=== PATIENT | male | born 1945 | race Two or more races ===

== ENCOUNTER 2019-11-23 21:54 | Inpatient (IN) | payer MEDICARE, OTHER ==
[~2019-11-23] VITALS: Ht 175.3 cm; Wt 89.4 kg
[2019-11-23 22:30] VITALS: BP 135/60
[2019-11-23 22:36] LABS: BASOPHILS % (AUTO) 0.7 % (0.0-2.0); HEMATOCRIT 45.8 % (42.0-52.0); HEMOGLOBIN 13.9 G/DL (14.2-18.0); LYMPHOCYTES % (AUTO) 11.9 % (20.0-45.0); MEAN CORPUSCULAR VOLUME 98 FL (80-99); NEUTROPHILS % (AUTO) 81.3 % (45.0-75.0); PLATELET COUNT 190 K/UL (150-450); RED BLOOD COUNT 4.67 M/UL (4.70-6.10); WHITE BLOOD COUNT 8.3 K/UL (4.8-10.8)
--- NOTE | 2019-11-23 22:47 | Diagnostic Imaging Report ---
EXAM: CT Head Without Intravenous Contrast CLINICAL HISTORY: DIZZY TECHNIQUE: Axial computed tomography images of the head/brain without intravenous contrast. CTDI is 53.4 mGy and DLP is 1072.2 mGy-cm. One or more of the following dose reduction techniques were used: automated exposure control, adjustment of the mA and/or kV according to patient size, use of iterative reconstruction technique. COMPARISON: No relevant prior studies available. FINDINGS: Brain: No hemorrhage. No edema. Involutional changes with small vessel disease Ventricles: No ventriculomegaly. Bones/joints: No acute fracture. Soft tissues: Unremarkable. Sinuses: No acute sinusitis. Sinus retention cyst/polyps. Mastoid air cells: No mastoid effusion. Right cataract surgery. IMPRESSION: No acute intracranial process.
[2019-11-23 23:04] LABS: ALANINE AMINOTRANSFERASE 117 U/L (12-78); ALBUMIN 3.9 G/DL (3.4-5.0); ALBUMIN/GLOBULIN RATIO 1.2 (1.0-2.7); ALKALINE PHOSPHATASE 76 U/L (46-116); ANION GAP 8 mmol/L (5-15); ASPARTATE AMINO TRANSFERASE 68 U/L (15-37); BILIRUBIN,TOTAL 0.4 MG/DL (0.2-1.0); BLOOD UREA NITROGEN 19 mg/dL (7-18); CALCIUM 8.8 MG/DL (8.5-10.1); CARBON DIOXIDE 29 MMOL/L (21-32); CHLORIDE 102 MMOL/L (98-107); CREATININE 1.4 MG/DL (0.55-1.30); SODIUM 138 MMOL/L (136-145)
[2019-11-23] MEDS ORDERED: Calcium Gluconate 1gm/10ml vial IVP ONE (23:30)
[2019-11-23] MEDS ORDERED: Insulin Human Regular 100units/ml 3ml IV ONE (23:30)
[2019-11-23] MEDS ORDERED: Mylanta II UD 30ml ORAL ONE (23:45)
[2019-11-23] MEDS ORDERED: Dicyclomine HCl 10mg/5ml oral soln ORAL ONE (23:45)
[2019-11-23] MEDS ORDERED: Lidocaine 2% Visc 15ml soln ORAL ONE (23:45)
[2019-11-24 00:05] VITALS: BP 139/66
--- NOTE | 2019-11-24 00:08 | Emergency Room Report ---
History of Present Illness General Chief Complaint: Abdominal Pain Source: Patient Present Illness HPI 74-year-old male presents for evaluation of dizziness. Brought in by EMS from home. States he has been feeling dizzy x1 day. Also states he has been having diarrhea and some abdominal pain. Denies any abdominal pain at this time. per nursing patient was covered in stool. Patient denies fevers or chills. Denies chest pain. No other aggravating relieving factors. 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: No Patient History Past Medical History: DM, HTN Past Surgical History: none Pertinent Family History: none Social History: Denies: smoking, alcohol use, drug use Reviewed Nursing Documentation: PMH: Agreed; PSxH: Agreed Nursing Documentation-PMH Hx Cardiac Problems: Yes - hld; 1degree block Hx Hypertension: Yes Hx Diabetes: Yes Review of Systems All Other Systems: negative except mentioned in HPI Physical Exam Vital Signs Date Time Temp Pulse Resp B/P (MAP) Pulse Ox O2 Delivery O2 Flow Rate FiO2 11/23/19 21:39 75 18 163/88 (113) 98 Room Air Sp02 EP Interpretation: reviewed, normal General Appearance: no apparent distress, alert, GCS 15, non-toxic Head: normocephalic, atraumatic Eyes: bilateral eye normal inspection, bilateral eye PERRL ENT: hearing grossly normal, normal pharynx, no angioedema, normal voice Neck: full range of motion, supple/symm/no masses Respiratory: chest non-tender, lungs clear, normal breath sounds, speaking full sentences Cardiovascular #1: regular rate, rhythm, no edema Cardiovascular #2: 2+ carotid (R), 2+ carotid (L), 2+ radial (R), 2+ radial (L) , 2+ dorsalis pedis (R), 2+ dorsalis pedis (L) Gastrointestinal: normal bowel sounds, non tender, soft, non-distended, no guarding, no rebound Rectal: deferred Genitourinary: normal inspection, no CVA tenderness Musculoskeletal: back normal, normal range of motion, gait/station normal, non- tender Neurologic: alert, motor strength/tone normal, oriented x3, sensory intact, responsive, speech normal Psychiatric: judgement/insight normal, memory normal, mood/affect normal, no suicidal/homicidal ideation Reflexes: 3+ bicep (R), 3+ bicep (L), 3+ tricep (R), 3+ tricep (L), 3+ knee (R) , 3+ knee (L) Lymphatic: no adenopathy Procedures Critical Care Time Critical Care Time i. I feel this is a highly complex case requiring extensive working including EKG/Rhythm strip, Xray/CT/US, Blood/urine lab work, repeat exams while in ED, and administration of strong opiates/narcotics for pain control, admission to hospital or close patient follow up. Total time: 30 min bedside evaluation and treatment excludes procedures (EKG). Reason for critical care: hyperkalemia, dizziness Possible complications: hypotension, hypertension, DE, shock, arrhythmias, metabolic acidosis, end organ damage, respiratory failure. Interventions: labs, ekg, CXR, ivfs, calcium/insulin/D50, CT head Course: Presenting with dizziness. Also complaining of diarrhea. EKG shows fascicular block. No acute ischemic changes. CT head negative. Mild renal insufficiency. Potassium elevated. given insulin/D50/calcium. Given IV fluids. Consultations: nursing staff, EMS, family Performed by: Dr Christensen Tolerated well condition = serious j. because of unstable vital signs this patient had a condition that could potentially threaten life or limb. I feel this is a critical patient who required my full attention while patient was considered critical. Total Critical Care Time excluding procedures was greater than 35 minutes Medical Decision Making Diagnostic Impression: Primary Impression: Dizziness Additional Impressions: Renal insufficiency Hyperkalemia Diarrhea Qualified Codes: R19.7 - Diarrhea, unspecified ER Course Hospital Course 74 yo M presents with dizziness, diarrhea Differential diagnoses include: DE/unstable angina, V. tach, bradycardia, hyperkalemia, fluid overload Clinical course Patient placed on stretcher. on campus monitor. After initial history and physical I ordered labs, EKG, CXR, IVFs, CT Head labs reviewed- potassium 6.0. BUN/Cr elevated. no leukocytotsis, trop negative , BNP ok, Hemoglobin/hematocrit normal. EKG - bifascular block, no acute ischemci changes interpreted by me CXR - no acute process CT head no acute process Given insulin/D50 and calcium. Case discussed with Dr. Esquivel and he agreed to accept the patient to his service for further care and support I. I feel this is a highly complex case requiring extensive working including EKG/Rhythm strip, Xray/CT/US, Blood/urine lab work, repeat exams while in ED, and administration of strong opiates/narcotics for pain control, admission to hospital or close patient follow up. Diagnosis - hyperkalemia,renal insufficency, diarrhea, dizziness admitted to telemetry in serious condition Labs Test 11/23/19 22:10 White Blood Count 8.3 K/UL (4.8-10.8) Red Blood Count 4.67 M/UL (4.70-6.10) Hemoglobin 13.9 G/DL (14.2-18.0) Hematocrit 45.8 % (42.0-52.0) Mean Corpuscular Volume 98 FL (80-99) Mean Corpuscular Hemoglobin 29.8 PG (27.0-31.0) Mean Corpuscular Hemoglobin Concent 30.4 G/DL (32.0-36.0) Red Cell Distribution Width 14.0 % (11.6-14.8) Platelet Count 190 K/UL (150-450) Mean Platelet Volume 9.2 FL (6.5-10.1) Neutrophils (%) (Auto) 81.3 % (45.0-75.0) Lymphocytes (%) (Auto) 11.9 % (20.0-45.0) Monocytes (%) (Auto) 5.0 % (1.0-10.0) Eosinophils (%) (Auto) 1.0 % (0.0-3.0) Basophils (%) (Auto) 0.7 % (0.0-2.0) Sodium Level 138 MMOL/L (136-145) Potassium Level 6.0 MMOL/L (3.5-5.1) Chloride Level 102 MMOL/L (98-107) Carbon Dioxide Level 29 MMOL/L (21-32) Anion Gap 8 mmol/L (5-15) Blood Urea Nitrogen 19 mg/dL (7-18) Creatinine 1.4 MG/DL (0.55-1.30) Estimat Glomerular Filtration Rate 49.5 mL/min (>60) Glucose Level 310 MG/DL (74-106) Calcium Level 8.8 MG/DL (8.5-10.1) Total Bilirubin 0.4 MG/DL (0.2-1.0) Aspartate Amino Transf (AST/SGOT) 68 U/L (15-37) Alanine Aminotransferase (ALT/SGPT) 117 U/L (12-78) Alkaline Phosphatase 76 U/L (46-116) Troponin I 0.012 ng/mL (0.000-0.056) Pro-B-Type Natriuretic Peptide 53 pg/mL (0-125) Total Protein 7.1 G/DL (6.4-8.2) Albumin 3.9 G/DL (3.4-5.0) Globulin 3.2 g/dL Albumin/Globulin Ratio 1.2 (1.0-2.7) Lipase 139 U/L (73-393) EKG Diagnostic Results Rate: normal Rhythm: NSR ST Segments: other - bifasciular block ASA given to the pt in ED: No Rhythm Strip Diag. Results EP Interpretation: yes Rhythm: NSR, no PVC's, no ectopy Chest X-Ray Diagnostic Results Chest X-Ray Diagnostic Results : Chest X-Ray Ordered: Yes # of Views/Limited/Complete: 1 View Indication: Other EP Interpretation: Yes Interpretation: no consolidation, no effusion, no pneumothorax, no acute cardiopulmonary disease Impression: No acute disease Electronically Signed by: Electronically signed by Ilir Christensen MD CT/MRI/US Diagnostic Results CT/MRI/US Diagnostic Results : Imaging Test Ordered: CT Head Impression EXAM: CT Head Without Intravenous Contrast CLINICAL HISTORY: DIZZY TECHNIQUE: Axial computed tomography images of the head/brain without intravenous contrast. CTDI is 53.4 mGy and DLP is 1072.2 mGy-cm. One or more of the following dose reduction techniques were used: automated exposure control, adjustment of the mA and/or kV according to patient size, use of iterative reconstruction technique. COMPARISON: No relevant prior studies available. FINDINGS: Brain: No hemorrhage. No edema. Involutional changes with small vessel disease Ventricles: No ventriculomegaly. Bones/joints: No acute fracture. Soft tissues: Unremarkable. Sinuses: No acute sinusitis. Sinus retention cyst/polyps. Mastoid air cells: No mastoid effusion. Right cataract surgery. IMPRESSION: No acute intracranial process. Last Vital Signs Date Time Temp Pulse Resp B/P (MAP) Pulse Ox O2 Delivery O2 Flow Rate FiO2 11/23/19 22:30 76 18 135/60 98 Room Air Status: improved Disposition: ADMITTED INPATIENT Condition: Serious Referrals: NON PHYSICIAN (PCP) Ilir Christensen MD Nov 24, 2019 00:08
[2019-11-24] MEDS ORDERED: Morphine Sulfate 2mg/ml Inj(IV/IM USE ONLY) IVP ONE (00:15)
[2019-11-24 04:00] VITALS: BP 122/53
[2019-11-24] MEDS: NovoLOG Insulin Flexpen SUBQ SCH ×4 (06:10→21:12)
[2019-11-24 06:44] LABS: BASOPHILS % (AUTO) 1.1 % (0.0-2.0); EOSINOPHILS % (AUTO) 0.6 % (0.0-3.0); HEMATOCRIT 42.7 % (42.0-52.0); LYMPHOCYTES % (AUTO) 22.9 % (20.0-45.0); MEAN CORPUSCULAR VOLUME 98 FL (80-99); MONOCYTES % (AUTO) 6.8 % (1.0-10.0); NEUTROPHILS % (AUTO) 68.6 % (45.0-75.0); PLATELET COUNT 192 K/UL (150-450); RED BLOOD COUNT 4.35 M/UL (4.70-6.10); WHITE BLOOD COUNT 8.1 K/UL (4.8-10.8)
[2019-11-24 07:51] LABS: ALANINE AMINOTRANSFERASE 102 U/L (12-78); ALBUMIN 3.6 G/DL (3.4-5.0); ALBUMIN/GLOBULIN RATIO 1.2 (1.0-2.7); ALKALINE PHOSPHATASE 64 U/L (46-116); ANION GAP 8 mmol/L (5-15); ASPARTATE AMINO TRANSFERASE 67 U/L (15-37); BILIRUBIN,TOTAL 0.5 MG/DL (0.2-1.0); BLOOD UREA NITROGEN 18 mg/dL (7-18); CALCIUM 8.4 MG/DL (8.5-10.1); CARBON DIOXIDE 29 MMOL/L (21-32); CHLORIDE 103 MMOL/L (98-107); CREATININE 0.9 MG/DL (0.55-1.30); POTASSIUM 4.1 MMOL/L (3.5-5.1); SODIUM 140 MMOL/L (136-145)
[2019-11-24 08:00] VITALS: BP 123/62
[2019-11-24] MEDS: Levemir Flexpen SUBQ SCH (08:56)
--- NOTE | 2019-11-24 10:16 | Diagnostic Imaging Report ---
Procedure: XRAY Chest 1v Reason for study: Cough. Comparison films: None. FINDINGS: A single one view chest is obtained. Vascularity is normal. Mild interstitial prominence perhaps geriatric changes. No acute alveolar process. There is mild cardiomegaly. Aorta is slightly tortuous. CP angles are sharp. The bony thorax appear unremarkable. IMPRESSION: Interstitial prominence perhaps geriatric changes. No acute alveolar process.
[2019-11-24 12:00] VITALS: BP 130/70
[2019-11-24] MEDS ORDERED: Omnipaque-300 100ml vial INJ PRN (12:15)
--- NOTE | 2019-11-24 12:35 | Consultation ---
Consult Note Consult Note I am asked to evaluate the patient at the request of Dr. Esquivel for renal failure and hyperkalemia. Patient came into emergency room last evening and subsequently admitted for further management. Emergency room note: Chief Complaint: Abdominal Pain 74-year-old male presents for evaluation of dizziness. Brought in by EMS from home. States he has been feeling dizzy x1 day. Also states he has been having diarrhea and some abdominal pain. Denies any abdominal pain at this time. per nursing patient was covered in stool. Patient denies fevers or chills. Denies chest pain. No other aggravating relieving factors. Denies any other associated symptoms No Known Allergies (Unverified , 11/23/19) COVID-19 Screening Contact w/high risk pt: No Recent Travel to affected area: No Experienced COVID-19 symptoms?: No COVID-19 Testing performed TRANSITION OF CARE SPECIALIST: No Past Medical History: DM, HTN Hx Cardiac Problems: Yes - hld; 1degree block Hx Hypertension: Yes Hx Diabetes: Yes Patient examined Data reviewed Assessment/Plan Elevated potassium of 6 and creatinine of 1.4 now corrected Diabetes mellitus Dizziness upon admission Diarrhea Check orthostatics Urine for analysis Monitor renal parameters and electrolytes Per orders Titi Luna MD Nov 24, 2019 12:35
[2019-11-24 16:00] VITALS: BP 133/62
--- NOTE | 2019-11-24 16:30 | Consultation ---
DATE OF CONSULTATION: 11/24/2019 CHIEF COMPLAINT: Abdominal pain. HISTORY OF PRESENT ILLNESS: This is a 74-year-old patient came from the [facility] mainly for complaint of dizziness, diarrhea, and abdominal pain. This morning when I talked to him, he stated his abdominal pain is better. He has not had diarrhea since this morning but he states his abdomen is distended, tender, and he is concerned. PAST MEDICAL HISTORY: 1. History of diabetes. 2. Hypertension. 3. First-degree AV block. PAST SURGICAL HISTORY: None. ALLERGIES: No known drug allergies. MEDICATIONS: Please see medication reconciliation list. SOCIAL HISTORY: The patient denies any tobacco, alcohol, or drug abuse. Currently lives in a [facility]. FAMILY HISTORY: Noncontributory. PHYSICAL EXAMINATION: VITAL SIGNS: The patient is no acute distress. VITAL SIGNS: Temperature 98.1, pulse 61, respirations 18, blood pressure is 123/62. HEENT: Normocephalic and atraumatic. Sclerae anicteric. NECK: Supple. No evidence of obvious lymphadenopathy. CARDIOVASCULAR: Regular rate and rhythm. Plus S1 and S2. LUNGS: Clear to auscultation bilaterally. ABDOMEN: Positive bowel sounds. Soft. Mildly distended. Mildly tympanic to percussion. No rebound. No guarding. No peritoneal sign. EXTREMITIES: No cyanosis. No clubbing. No edema. LABORATORY DATA: White count is 8, hemoglobin 13, hematocrit 42, platelet count 192. Chem-7, creatinine is 0.9, glucose is 136, AST of 67, ALT of 102. ASSESSMENT/PLAN: The patient is a 74-year-old male with diabetes, hypertension, first-degree AV block came to the hospital with complaint of abdominal pain and diarrhea. Diarrhea is improving, but the abdominal pain is still there. Given age of 74 and abdominal distention, we are going to order CT to reevaluate for cause of abdominal pain. There is no evidence of any alarming sign and symptoms at this time. There is no anemia. No significant weight loss. The patient also has mild transaminitis might be due to fatty liver. We will repeat the labs for tomorrow. I want to thank, Dr. Esquivel, for this kind referral. Sabino Rufus Magdaleno DR: Hollie JOB#: [id number] CC: Morena Esquivel M.D.; Fax#: [phone]
[2019-11-24 17:41] LABS: APPEARANCE,URINE CLEAR; BILIRUBIN, URINE NEGATIVE (NEGATIVE); COLOR,URINE PALE YELLOW; GLUCOSE, URINE (UA) NEGATIVE (NEGATIVE); KETONES,URINE NEGATIVE (NEGATIVE); LEUKOCYTE ESTERASE ,URINE NEGATIVE (NEGATIVE); NITRITE,URINE NEGATIVE (NEGATIVE); PH,URINE 6.5 (4.5-8.0); PROTEIN,URINE NEGATIVE (NEGATIVE); UROBILINOGEN,URINE NORMAL MG/DL (0.0-1.0)
--- NOTE | 2019-11-24 18:00 | Consultation ---
DATE OF CONSULTATION: 11/24/2019 ENDOCRINOLOGY CONSULTATION CONSULTING PHYSICIAN: Oskar Dominique MD REFERRING PHYSICIAN: Morena Esquivel MD REASON FOR CONSULTATION: Diabetes, out of control, glucose of 300. HISTORY OF PRESENT ILLNESS: The patient is a 74-year-old male who was brought by paramedics from home. He has been feeling dizzy x1 day with diarrhea and abdominal pain. The patient was covered in stool. No fever or chills. No other associated symptoms. Poor historian. PAST MEDICAL HISTORY: 1. Diabetes. 2. Hypertension. PAST SURGICAL HISTORY: None. FAMILY HISTORY: Noncontributory. SOCIAL HISTORY: No smoking, alcohol, or drug use. REVIEW OF SYSTEMS: As per HPI. LABORATORY DATA: Sodium 138, potassium of 6, chloride 102, bicarb 29, BUN 19, creatinine 1.4, glucose of 310. WBC 8, hemoglobin 13, hematocrit 42, platelets of 192. PHYSICAL EXAMINATION: VITAL SIGNS: Blood pressure 122/53, pulse 60, temperature 96.7, respiratory rate of 16. HEENT: Pupils are equal and reactive to light. Sclerae anicteric. NECK: No JVD. HEART: Regular. LUNGS: Clear. ABDOMEN: Positive bowel sounds. EXTREMITIES: Trace edema. DIAGNOSES: 1. Nausea, vomiting, and diarrhea. 2. Diabetes, out of control. PLAN: 1. Start Levemir 10 units daily. 2. NovoLog sliding scale before meals and at bedtime. 3. Check hemoglobin A1c. 4. Hypoglycemia protocol. 5. Further adjustment according to blood glucose values. Thank you Dr. Esquivel for the courtesy of this consultation. Oskar Dominique M.D. DR: KEV JOB#: [id number] CC:
[2019-11-24 20:00] VITALS: BP 136/64
--- NOTE | 2019-11-24 22:30 | History and Physical Report ---
DATE OF ADMISSION: 11/23/2019 SUBJECTIVE: The patient is admitted for hyperkalemia and dizziness. The patient complains of dizziness, potassium was around 6. Also has history of diabetes. The patient is also admitted for elevated LFTs. The patient is complaining of abdominal pain for one day, associated with nausea and constipation. The patient had a large bowel movement in the hospital per nurse. The patient does have some nausea, but no vomiting. No shortness of breath. No cough. No fever or chills. No orthopnea. PAST MEDICAL HISTORY: Significant for GERD, NIDDM, history of constipation. PAST SURGICAL HISTORY: Noncontributory. SOCIAL HISTORY: He has history of smoking. Denies history of drug abuse. Denies history of alcohol abuse. ALLERGIES: No known allergies. MEDICATIONS: Cannot tell me exactly the name of the medications the patient takes. Noncontributory. REVIEW OF SYSTEMS: HEENT: Denies headaches. Does have dizziness. Denies vertigo. CHEST: Denies shortness of breath. Denies cough. CARDIOVASCULAR: Denies chest pain. GASTROINTESTINAL: Reports abdominal pain for one day, associated with nausea and constipation. EXTREMITIES: Denies pain in lower extremities. CENTRAL NERVOUS SYSTEM: Denies change in speech pattern. PHYSICAL EXAMINATION: VITAL SIGNS: Temperature is 96.7, pulse is 60, blood pressure 122/53. HEENT: PERRLA. NECK: Supple. No lymphadenopathy. CHEST: Clear to auscultation. CARDIOVASCULAR: Regular rate and rhythm. No murmurs or extra sounds. GASTROINTESTINAL: Mild epigastric tenderness. No rebound. ABDOMEN: Soft. No organomegaly. Positive bowel sounds. EXTREMITIES: No edema. He is able to move his extremities. Dorsalis pedal pulses present. LABORATORY DATA: WBC of 8.6, hemoglobin 13.9, platelets of 190. Sodium 138, potassium 6, chloride 102, BUN of 19, creatinine 1.4, glucose of 310. AST of 68 and ALT of 117. Troponin 0.012. ASSESSMENT: 1. Hyperkalemia, dizziness, could be due to electrolyte imbalance and has acute renal failure. 2. Elevated LFTs. 3. NIDDM. PLAN: I have consulted Dr. Luna, Dr. Dominique, Dr. Zach Terry, Dr. Magdaleno to help with the above-mentioned abnormalities and abnormal symptoms as well as abnormal lab findings. Morena Esquivel M.D. DR: CARLI JOB#: [id number] CC:
[2019-11-25] VITALS (7 sets, daily range): BP systolic 112–154; BP diastolic 63–70
[2019-11-25 06:18] LABS: BASOPHILS % (AUTO) 1.1 % (0.0-2.0); EOSINOPHILS % (AUTO) 2.7 % (0.0-3.0); HEMATOCRIT 42.6 % (42.0-52.0); LYMPHOCYTES % (AUTO) 33.9 % (20.0-45.0); MEAN CORPUSCULAR VOLUME 98 FL (80-99); MONOCYTES % (AUTO) 8.2 % (1.0-10.0); NEUTROPHILS % (AUTO) 54.1 % (45.0-75.0); PLATELET COUNT 184 K/UL (150-450); RED BLOOD COUNT 4.36 M/UL (4.70-6.10); RED CELL DISTRIBUTION WIDTH 14.3 % (11.6-14.8)
[2019-11-25] MEDS: NovoLOG Insulin Flexpen SUBQ SCH ×4 (06:24→21:44)
[2019-11-25 06:38] LABS: ALANINE AMINOTRANSFERASE 84 U/L (12-78); ALBUMIN 3.4 G/DL (3.4-5.0); ALBUMIN/GLOBULIN RATIO 1.1 (1.0-2.7); ALKALINE PHOSPHATASE 61 U/L (46-116); ANION GAP 4 mmol/L (5-15); ASPARTATE AMINO TRANSFERASE 49 U/L (15-37); BILIRUBIN,TOTAL 0.5 MG/DL (0.2-1.0); BLOOD UREA NITROGEN 12 mg/dL (7-18); CALCIUM 8.3 MG/DL (8.5-10.1); CARBON DIOXIDE 33 MMOL/L (21-32); CHLORIDE 104 MMOL/L (98-107); CHOLESTEROL 91 MG/DL (< 200); CREATININE 0.9 MG/DL (0.55-1.30); HDL CHOLESTEROL 35 MG/DL (40-60); SODIUM 141 MMOL/L (136-145); TRIGLYCERIDES 53 MG/DL (30-150)
[2019-11-25 06:47] LABS: GAMMA GLUTAMYL TRANSPEPTIDASE 24 U/L (5-85); PHOSPHORUS 4.3 MG/DL (2.5-4.9)
--- NOTE | 2019-11-25 07:20 | General Progress Note ---
Assessment/Plan Problem List: (1) Diabetes mellitus (2) Hyperkalemia (3) Dizziness (4) Diarrhea (5) Renal insufficiency Assessment/Plan: continue Levemir 10 units daily continue Novolog sliding scale ac / hs hypoglycemia protocol in order Subjective ROS Limited/Unobtainable: Yes Allergies: Coded Allergies: No Known Allergies (Unverified , 11/23/19) Subjective events noted glucose values are stable Item Value Date Time Bedside Blood Glucose 125 mg/dl H 11/25/19 0625 Bedside Blood Glucose 192 mg/dl H 11/24/19 2112 Bedside Blood Glucose 164 mg/dl H 11/24/19 1700 Bedside Blood Glucose 148 mg/dl H 11/24/19 1226 Bedside Blood Glucose 168 mg/dl H 11/24/19 0856 Bedside Blood Glucose 131 mg/dl H 11/24/19 0630 Objective Last 24 Hour Vital Signs Date Time Temp Pulse Resp B/P (MAP) Pulse Ox O2 Delivery O2 Flow Rate FiO2 11/25/19 04:03 56 11/25/19 04:00 99.3 61 20 123/63 (83) 95 11/25/19 00:00 56 11/25/19 00:00 97.9 60 20 154/70 (98) 98 11/24/19 21:00 Room Air 11/24/19 20:00 57 11/24/19 20:00 96.2 60 20 136/64 (88) 98 11/24/19 16:00 97.9 58 20 133/62 (85) 97 11/24/19 16:00 58 11/24/19 12:00 63 11/24/19 12:00 98.2 63 20 130/70 (90) 96 11/24/19 09:00 Room Air 11/24/19 08:00 65 11/24/19 08:00 98.1 65 18 123/62 (82) 95 Intake and Output 11/24/19 11/25/19 19:00 07:00 Intake Total 400 ml 240 ml Balance 400 ml 240 ml Intake Oral 400 ml 240 ml # Voids 2 1 # Bowel Movements 3 2 Laboratory Tests 11/24/19 17:00: Urine Color Pale yellow, Urine Appearance Clear, Urine pH 6.5, Urine Specific [place] 1.005, Urine Protein Negative, Urine Glucose (UA) Negative, Urine Ketones Negative, Urine Blood Negative, Urine Nitrite Negative, Urine Bilirubin Negative, Urine Urobilinogen Normal, Urine Leukocyte Esterase Negative, Urine RBC 0-2H, Urine WBC 0-2, Urine Squamous Epithelial Cells None, Urine Bacteria None 11/25/19 05:30: White Blood Count 7.0, Red Blood Count 4.36L, Hemoglobin 13.0L, Hematocrit 42.6 , Mean Corpuscular Volume 98, Mean Corpuscular Hemoglobin 29.8, Mean Corpuscular Hemoglobin Concent 30.5L, Red Cell Distribution Width 14.3, Platelet Count 184, Mean Platelet Volume 8.5, Neutrophils (%) (Auto) 54.1, Lymphocytes (%) (Auto) 33.9, Monocytes (%) (Auto) 8.2, Eosinophils (%) (Auto) 2.7, Basophils (%) (Auto) 1.1, Sodium Level 141, Potassium Level 4.0, Chloride Level 104, Carbon Dioxide Level 33H, Anion Gap 4L, Blood Urea Nitrogen 12, Creatinine 0.9, Estimat Glomerular Filtration Rate > 60, Glucose Level 149H, Uric Acid 3.9, Calcium Level 8.3L, Phosphorus Level 4.3, Magnesium Level 1.6L, Total Bilirubin 0.5, Gamma Glutamyl Transpeptidase 24, Aspartate Amino Transf ( AST/SGOT) 49H, Alanine Aminotransferase (ALT/SGPT) 84H, Alkaline Phosphatase 61 , C-Reactive Protein, Quantitative < 0.4, Pro-B-Type Natriuretic Peptide 194H, Total Protein 6.5, Albumin 3.4, Globulin 3.1, Albumin/Globulin Ratio 1.1, Triglycerides Level 53, Cholesterol Level 91, LDL Cholesterol 43, HDL Cholesterol 35L, Cholesterol/HDL Ratio 2.6L, Vitamin B12 Level 312, Folate 11.7 , Thyroid Stimulating Hormone (TSH) 3.183 Height (Feet): 5 Height (Inches): 7.00 Weight (Pounds): 195 General Appearance: no apparent distress Neck: normal alignment Cardiovascular: normal rate Respiratory/Chest: lungs clear Abdomen: normal bowel sounds Objective Current Medications Medications (Trade) Dose Ordered Sig/Zain Route PRN Reason Start Time Stop Time Status Last Admin Dose Admin Barium Sulfate (Readi-Cat 2) 450 ml NOW PRN ORAL Radiology Procedure 11/24/19 12:15 11/26/19 12:12 Dextrose (Dextrose 50%) 25 ml Q30M PRN IV Hypoglycemia 11/24/19 01:30 02/22/20 01:29 Dextrose (Dextrose 50%) 50 ml Q30M PRN IV Hypoglycemia 11/24/19 01:30 02/22/20 01:29 Insulin Aspart (NovoLOG) BEFORE MEALS AND HS SUBQ 11/24/19 06:30 02/22/20 06:29 11/24/19 21:12 Insulin Detemir (Levemir) 10 units DAILY SUBQ 11/24/19 09:00 02/22/20 08:59 11/24/19 08:56 Iohexol (OMNIPAQUE-300 100ml) 100 ml NOW PRN INJ Radiology Procedure 11/24/19 12:15 11/26/19 12:12 Ondansetron HCl (Zofran) 4 mg Q6H PRN IVP Nausea & Vomiting 11/24/19 01:30 12/24/19 01:29 Pantoprazole (Protonix) 40 mg EVERY 12 HOURS ORAL 11/24/19 21:00 12/24/19 20:59 11/24/19 21:11 Oskar Dominique MD Nov 25, 2019 07:20
[2019-11-25] MEDS: Levemir Flexpen SUBQ SCH (08:51)
--- NOTE | 2019-11-25 10:13 | General Progress Note ---
Assessment/Plan Problem List: (1) Renal insufficiency ICD Codes: N28.9 - Disorder of kidney and ureter, unspecified SNOMED: 099534758, 797755472 (2) Diarrhea ICD Codes: R19.7 - Diarrhea, unspecified SNOMED: 36601538, 313675599 Qualifiers: Qualified Codes: R19.7 - Diarrhea, unspecified (3) Diabetes mellitus ICD Codes: E11.9 - Type 2 diabetes mellitus without complications SNOMED: 76063558 (4) Dizziness ICD Codes: R42 - Dizziness and giddiness SNOMED: 313155204, 825075151 (5) Hyperkalemia ICD Codes: E87.5 - Hyperkalemia SNOMED: 04755187, 871163179 Assessment/Plan: fu abd CT add colace and miralax fu labs will fu Subjective ROS Limited/Unobtainable: Yes Allergies: Coded Allergies: No Known Allergies (Unverified , 11/23/19) Objective Last 24 Hour Vital Signs Date Time Temp Pulse Resp B/P (MAP) Pulse Ox O2 Delivery O2 Flow Rate FiO2 11/25/19 09:26 62 11/25/19 09:26 98.6 62 20 128/70 (89) 96 11/25/19 09:00 Room Air 11/25/19 08:00 98.6 62 20 128/70 (89) 96 11/25/19 04:03 56 11/25/19 04:00 99.3 61 20 123/63 (83) 95 11/25/19 00:00 56 11/25/19 00:00 97.9 60 20 154/70 (98) 98 11/24/19 21:00 Room Air 11/24/19 20:00 57 11/24/19 20:00 96.2 60 20 136/64 (88) 98 11/24/19 16:00 97.9 58 20 133/62 (85) 97 11/24/19 16:00 58 11/24/19 12:00 63 11/24/19 12:00 98.2 63 20 130/70 (90) 96 Intake and Output 11/24/19 11/25/19 19:00 07:00 Intake Total 400 ml 240 ml Balance 400 ml 240 ml Intake Oral 400 ml 240 ml # Voids 2 1 # Bowel Movements 3 2 Laboratory Tests 11/24/19 17:00: Urine Color Pale yellow, Urine Appearance Clear, Urine pH 6.5, Urine Specific [place] 1.005, Urine Protein Negative, Urine Glucose (UA) Negative, Urine Ketones Negative, Urine Blood Negative, Urine Nitrite Negative, Urine Bilirubin Negative, Urine Urobilinogen Normal, Urine Leukocyte Esterase Negative, Urine RBC 0-2H, Urine WBC 0-2, Urine Squamous Epithelial Cells None, Urine Bacteria None 11/25/19 05:30: White Blood Count 7.0, Red Blood Count 4.36L, Hemoglobin 13.0L, Hematocrit 42.6 , Mean Corpuscular Volume 98, Mean Corpuscular Hemoglobin 29.8, Mean Corpuscular Hemoglobin Concent 30.5L, Red Cell Distribution Width 14.3, Platelet Count 184, Mean Platelet Volume 8.5, Neutrophils (%) (Auto) 54.1, Lymphocytes (%) (Auto) 33.9, Monocytes (%) (Auto) 8.2, Eosinophils (%) (Auto) 2.7, Basophils (%) (Auto) 1.1, Sodium Level 141, Potassium Level 4.0, Chloride Level 104, Carbon Dioxide Level 33H, Anion Gap 4L, Blood Urea Nitrogen 12, Creatinine 0.9, Estimat Glomerular Filtration Rate > 60, Glucose Level 149H, Uric Acid 3.9, Calcium Level 8.3L, Phosphorus Level 4.3, Magnesium Level 1.6L, Total Bilirubin 0.5, Gamma Glutamyl Transpeptidase 24, Aspartate Amino Transf ( AST/SGOT) 49H, Alanine Aminotransferase (ALT/SGPT) 84H, Alkaline Phosphatase 61 , C-Reactive Protein, Quantitative < 0.4, Pro-B-Type Natriuretic Peptide 194H, Total Protein 6.5, Albumin 3.4, Globulin 3.1, Albumin/Globulin Ratio 1.1, Triglycerides Level 53, Cholesterol Level 91, LDL Cholesterol 43, HDL Cholesterol 35L, Cholesterol/HDL Ratio 2.6L, Vitamin B12 Level 312, Folate 11.7 , Thyroid Stimulating Hormone (TSH) 3.183 Height (Feet): 5 Height (Inches): 7.00 Weight (Pounds): 195 General Appearance: no apparent distress EENT: normal ENT inspection Neck: supple Cardiovascular: normal rate Respiratory/Chest: decreased breath sounds Abdomen: soft, hypoactive bowel sounds, distended Extremities: non-tender Sabino Magdaleno MD Nov 25, 2019 10:13
--- NOTE | 2019-11-25 12:08 | Diagnostic Imaging Report ---
EXAM: CT CT Abdomen Pelvis w/Contrast INDICATION: Reason For Exam: ABD PAIN. COMPARISON: None TECHNIQUE: Axial images were obtained through the abdomen pelvis with intravenous contrast. Sagittal and coronal reformats are generated. All CT scans at this facility are performed using dose modulation techniques as appropriate to a performed exam including the following: automated exposure control with adjustment of the mA and/or kV according to patient size. RADIATION DOSE: CTDIvol: 9.7 mGy DLP: 511.3 mGy-cm Dose information generated by the CT scanner is available in PACS. FINDINGS: The lung bases are clear. There is diffuse fatty liver. Spleen is homogeneous except for punctate granulomas. Gallbladder is unremarkable. The pancreas is unremarkable. Adrenals are normal in morphology. The kidneys are normal in size, shape and axis. Small bowel loops are nondistended. Increased stool lucencies noted throughout the colon. Mild scattered diverticulosis without sign of acute diverticulitis. The appendix is normal. There is no free fluid or free air. No pathologic adenopathy demonstrated. Urinary bladder appears unremarkable. There are bilateral small fatty inguinal hernias left greater than right. IMPRESSION: FATTY LIVER. SPLENIC GRANULOMAS. DIVERTICULOSIS. BILATERAL SMALL FATTY INGUINAL HERNIAS
--- NOTE | 2019-11-25 12:44 | Nephrology Progress Note ---
Assessment/Plan Problem List: (1) Renal insufficiency (2) Diabetes mellitus (3) Hyperkalemia (4) Dizziness (5) Diarrhea Assessment Elevated potassium of 6 and creatinine of 1.4 now corrected Diabetes mellitus Dizziness upon admission Diarrhea Plan Check orthostatics Urine for analysis Monitor renal parameters and electrolytes Per orders Subjective ROS Limited/Unobtainable: No Constitutional: Reports: malaise Objective Objective Last 24 Hour Vital Signs Date Time Temp Pulse Resp B/P (MAP) Pulse Ox O2 Delivery O2 Flow Rate FiO2 11/25/19 09:26 62 11/25/19 09:26 98.6 62 20 128/70 (89) 96 11/25/19 09:00 Room Air 11/25/19 08:00 98.6 62 20 128/70 (89) 96 11/25/19 04:03 56 11/25/19 04:00 99.3 61 20 123/63 (83) 95 11/25/19 00:00 56 11/25/19 00:00 97.9 60 20 154/70 (98) 98 11/24/19 21:00 Room Air 11/24/19 20:00 57 11/24/19 20:00 96.2 60 20 136/64 (88) 98 11/24/19 16:00 97.9 58 20 133/62 (85) 97 11/24/19 16:00 58 Intake and Output 11/24/19 11/25/19 19:00 07:00 Intake Total 400 ml 240 ml Balance 400 ml 240 ml Intake Oral 400 ml 240 ml # Voids 2 1 # Bowel Movements 3 2 Laboratory Tests 11/24/19 17:00: Urine Color Pale yellow, Urine Appearance Clear, Urine pH 6.5, Urine Specific [place] 1.005, Urine Protein Negative, Urine Glucose (UA) Negative, Urine Ketones Negative, Urine Blood Negative, Urine Nitrite Negative, Urine Bilirubin Negative, Urine Urobilinogen Normal, Urine Leukocyte Esterase Negative, Urine RBC 0-2H, Urine WBC 0-2, Urine Squamous Epithelial Cells None, Urine Bacteria None 11/25/19 05:30: White Blood Count 7.0, Red Blood Count 4.36L, Hemoglobin 13.0L, Hematocrit 42.6 , Mean Corpuscular Volume 98, Mean Corpuscular Hemoglobin 29.8, Mean Corpuscular Hemoglobin Concent 30.5L, Red Cell Distribution Width 14.3, Platelet Count 184, Mean Platelet Volume 8.5, Neutrophils (%) (Auto) 54.1, Lymphocytes (%) (Auto) 33.9, Monocytes (%) (Auto) 8.2, Eosinophils (%) (Auto) 2.7, Basophils (%) (Auto) 1.1, Sodium Level 141, Potassium Level 4.0, Chloride Level 104, Carbon Dioxide Level 33H, Anion Gap 4L, Blood Urea Nitrogen 12, Creatinine 0.9, Estimat Glomerular Filtration Rate > 60, Glucose Level 149H, Uric Acid 3.9, Calcium Level 8.3L, Phosphorus Level 4.3, Magnesium Level 1.6L, Total Bilirubin 0.5, Gamma Glutamyl Transpeptidase 24, Aspartate Amino Transf ( AST/SGOT) 49H, Alanine Aminotransferase (ALT/SGPT) 84H, Alkaline Phosphatase 61 , C-Reactive Protein, Quantitative < 0.4, Pro-B-Type Natriuretic Peptide 194H, Total Protein 6.5, Albumin 3.4, Globulin 3.1, Albumin/Globulin Ratio 1.1, Triglycerides Level 53, Cholesterol Level 91, LDL Cholesterol 43, HDL Cholesterol 35L, Cholesterol/HDL Ratio 2.6L, Vitamin B12 Level 312, Folate 11.7 , Thyroid Stimulating Hormone (TSH) 3.183 Height (Feet): 5 Height (Inches): 7.00 Weight (Pounds): 195 General Appearance: no apparent distress Objective No change Titi Luna MD Nov 25, 2019 12:44
--- NOTE | 2019-11-25 13:58 | Cardiac Electrophysiology PN ---
Subjective Subjective [id number] Objective Last 24 Hour Vital Signs Date Time Temp Pulse Resp B/P (MAP) Pulse Ox O2 Delivery O2 Flow Rate FiO2 11/25/19 09:26 62 11/25/19 09:26 98.6 62 20 128/70 (89) 96 11/25/19 09:00 Room Air 11/25/19 08:00 98.6 62 20 128/70 (89) 96 11/25/19 04:03 56 11/25/19 04:00 99.3 61 20 123/63 (83) 95 11/25/19 00:00 56 11/25/19 00:00 97.9 60 20 154/70 (98) 98 11/24/19 21:00 Room Air 11/24/19 20:00 57 11/24/19 20:00 96.2 60 20 136/64 (88) 98 11/24/19 16:00 97.9 58 20 133/62 (85) 97 11/24/19 16:00 58 Intake and Output 11/24/19 11/25/19 19:00 07:00 Intake Total 400 ml 240 ml Balance 400 ml 240 ml Intake Oral 400 ml 240 ml # Voids 2 1 # Bowel Movements 3 2 Laboratory Tests Test 11/24/19 17:00 11/25/19 05:30 Urine Color Pale yellow Urine Appearance Clear Urine pH 6.5 (4.5-8.0) Urine Specific [place] 1.005 (1.005-1.035) Urine Protein Negative (NEGATIVE) Urine Glucose (UA) Negative (NEGATIVE) Urine Ketones Negative (NEGATIVE) Urine Blood Negative (NEGATIVE) Urine Nitrite Negative (NEGATIVE) Urine Bilirubin Negative (NEGATIVE) Urine Urobilinogen Normal MG/DL (0.0-1.0) Urine Leukocyte Esterase Negative (NEGATIVE) Urine RBC 0-2 /HPF (0 - 0) H Urine WBC 0-2 /HPF (0 - 0) Urine Squamous Epithelial Cells None /LPF (NONE/OCC) Urine Bacteria None /HPF (NONE) White Blood Count 7.0 K/UL (4.8-10.8) Red Blood Count 4.36 M/UL (4.70-6.10) L Hemoglobin 13.0 G/DL (14.2-18.0) L Hematocrit 42.6 % (42.0-52.0) Mean Corpuscular Volume 98 FL (80-99) Mean Corpuscular Hemoglobin 29.8 PG (27.0-31.0) Mean Corpuscular Hemoglobin Concent 30.5 G/DL (32.0-36.0) L Red Cell Distribution Width 14.3 % (11.6-14.8) Platelet Count 184 K/UL (150-450) Mean Platelet Volume 8.5 FL (6.5-10.1) Neutrophils (%) (Auto) 54.1 % (45.0-75.0) Lymphocytes (%) (Auto) 33.9 % (20.0-45.0) Monocytes (%) (Auto) 8.2 % (1.0-10.0) Eosinophils (%) (Auto) 2.7 % (0.0-3.0) Basophils (%) (Auto) 1.1 % (0.0-2.0) Sodium Level 141 MMOL/L (136-145) Potassium Level 4.0 MMOL/L (3.5-5.1) Chloride Level 104 MMOL/L (98-107) Carbon Dioxide Level 33 MMOL/L (21-32) H Anion Gap 4 mmol/L (5-15) L Blood Urea Nitrogen 12 mg/dL (7-18) Creatinine 0.9 MG/DL (0.55-1.30) Estimat Glomerular Filtration Rate > 60 mL/min (>60) Glucose Level 149 MG/DL (74-106) H Uric Acid 3.9 MG/DL (2.6-7.2) Calcium Level 8.3 MG/DL (8.5-10.1) L Phosphorus Level 4.3 MG/DL (2.5-4.9) Magnesium Level 1.6 MG/DL (1.8-2.4) L Total Bilirubin 0.5 MG/DL (0.2-1.0) Gamma Glutamyl Transpeptidase 24 U/L (5-85) Aspartate Amino Transf (AST/SGOT) 49 U/L (15-37) H Alanine Aminotransferase (ALT/SGPT) 84 U/L (12-78) H Alkaline Phosphatase 61 U/L (46-116) C-Reactive Protein, Quantitative < 0.4 mg/dL (0.00-0.90) Pro-B-Type Natriuretic Peptide 194 pg/mL (0-125) H Total Protein 6.5 G/DL (6.4-8.2) Albumin 3.4 G/DL (3.4-5.0) Globulin 3.1 g/dL Albumin/Globulin Ratio 1.1 (1.0-2.7) Triglycerides Level 53 MG/DL (30-150) Cholesterol Level 91 MG/DL (< 200) LDL Cholesterol 43 mg/dL (<100) HDL Cholesterol 35 MG/DL (40-60) L Cholesterol/HDL Ratio 2.6 (3.3-4.4) L Vitamin B12 Level 312 PG/ML (193-986) Folate 11.7 NG/ML (8.6-58.9) Thyroid Stimulating Hormone (TSH) 3.183 uiU/mL (0.358-3.740) Buddy Condon MD Nov 25, 2019 13:58
--- NOTE | 2019-11-25 17:30 | Consultation ---
DATE OF CONSULTATION: 11/25/2019 CARDIOLOGY CONSULTATION CONSULTING PHYSICIAN: Buddy Condon MD. REFERRING PHYSICIAN: Morena Esquivel MD. REASON FOR CONSULTATION: Bradycardia, trifascicular block, and syncope. HISTORY OF PRESENT ILLNESS: Patient is a 74-year-old gentleman with history of hypertension and diabetes, who was brought in by paramedics from home for dizziness as well as abdominal pain and diarrhea. Patient was covered in stool. He does have any fever or chills. 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 Patient underwent CT of abdomen and pelvis and a Cardiology consultation was requested for evaluation and management. REVIEW OF SYSTEMS: Negative other than what was mentioned in history of present illness. PAST MEDICAL HISTORY: As mentioned above. FAMILY HISTORY: Noncontributory. SOCIAL HISTORY: He lives at home. Does not smoke or drink alcohol. PHYSICAL EXAMINATION: VITAL SIGNS: Blood pressure is 110/70, pulse is 52, respirations 18, and he is afebrile. HEAD AND NECK: Showed no JVD. LUNGS: Clear. CARDIOVASCULAR: Regular S1 and S2 with no gallop. ABDOMEN: Soft. EXTREMITIES: No pitting edema. LABORATORY DATA: Labs show white count of 7, hemoglobin 13, hematocrit 42.6, and platelet count of 184. Sodium 141, potassium 4.0, BUN of 12, creatinine 0.9, and glucose of 149. His first troponin is negative. His initial potassium was 6. ASSESSMENT AND PLAN: 1. Dizziness and bradycardia in a patient with a trifascicular block. I do not see any evidence of complete heart block. Heart rate remains in the 50s and 60s. Patient stays off of any sinus node, AV node, or AV be blocking agents. His TSH is also within normal range. We will watch patient on telemetry. Currently, there is no indication for pacemaker at this point. 2. Renal insufficiency and hyperkalemia. Creatinine is improved to 1.4. Potassium is improved. Further evaluation by Dr. Luna. 3. Diabetes. 4. Diarrhea. Further evaluation by GI. Thank you very much for allowing me to participate in the care of this patient. Please do not hesitate to contact me for any questions regarding my evaluation. Buddy Condon M.D. DR: KAYLA JOB#: [id number] CC:
[2019-11-25] MEDS: Docusate 100mg cap ORAL SCH (17:42)
[2019-11-25] MEDS ORDERED: Miralax 17gm pkt ORAL SCH (21:00)
--- NOTE | 2019-11-25 21:31 | General Progress Note ---
Assessment/Plan Problem List: (1) Hyperkalemia ICD Codes: E87.5 - Hyperkalemia SNOMED: 96574615, 852357146 (2) Dizziness ICD Codes: R42 - Dizziness and giddiness SNOMED: 131074014, 883925831 (3) Diabetes mellitus ICD Codes: E11.9 - Type 2 diabetes mellitus without complications SNOMED: 24197025 (4) Renal insufficiency ICD Codes: N28.9 - Disorder of kidney and ureter, unspecified SNOMED: 017845660, 435479665 Status: progressing Assessment/Plan: dizzy bradycardia consulted dr jyoti silva abnormality dm elevated sugar Subjective ROS Limited/Unobtainable: Yes Allergies: Coded Allergies: No Known Allergies (Unverified , 11/23/19) Objective Last 24 Hour Vital Signs Date Time Temp Pulse Resp B/P (MAP) Pulse Ox O2 Delivery O2 Flow Rate FiO2 11/25/19 16:00 64 11/25/19 16:00 97.9 64 20 112/70 (84) 98 11/25/19 12:00 96.4 58 20 124/70 (88) 96 11/25/19 12:00 58 11/25/19 09:26 62 11/25/19 09:26 98.6 62 20 128/70 (89) 96 11/25/19 09:00 Room Air 11/25/19 08:00 98.6 62 20 128/70 (89) 96 11/25/19 04:03 56 11/25/19 04:00 99.3 61 20 123/63 (83) 95 11/25/19 00:00 56 11/25/19 00:00 97.9 60 20 154/70 (98) 98 Intake and Output 11/24/19 11/25/19 19:00 07:00 Intake Total 400 ml 240 ml Balance 400 ml 240 ml Intake Oral 400 ml 240 ml # Voids 2 1 # Bowel Movements 3 2 Laboratory Tests 11/25/19 05:30: White Blood Count 7.0, Red Blood Count 4.36L, Hemoglobin 13.0L, Hematocrit 42.6 , Mean Corpuscular Volume 98, Mean Corpuscular Hemoglobin 29.8, Mean Corpuscular Hemoglobin Concent 30.5L, Red Cell Distribution Width 14.3, Platelet Count 184, Mean Platelet Volume 8.5, Neutrophils (%) (Auto) 54.1, Lymphocytes (%) (Auto) 33.9, Monocytes (%) (Auto) 8.2, Eosinophils (%) (Auto) 2.7, Basophils (%) (Auto) 1.1, Sodium Level 141, Potassium Level 4.0, Chloride Level 104, Carbon Dioxide Level 33H, Anion Gap 4L, Blood Urea Nitrogen 12, Creatinine 0.9, Estimat Glomerular Filtration Rate > 60, Glucose Level 149H, Uric Acid 3.9, Calcium Level 8.3L, Phosphorus Level 4.3, Magnesium Level 1.6L, Total Bilirubin 0.5, Gamma Glutamyl Transpeptidase 24, Aspartate Amino Transf ( AST/SGOT) 49H, Alanine Aminotransferase (ALT/SGPT) 84H, Alkaline Phosphatase 61 , C-Reactive Protein, Quantitative < 0.4, Pro-B-Type Natriuretic Peptide 194H, Total Protein 6.5, Albumin 3.4, Globulin 3.1, Albumin/Globulin Ratio 1.1, Triglycerides Level 53, Cholesterol Level 91, LDL Cholesterol 43, HDL Cholesterol 35L, Cholesterol/HDL Ratio 2.6L, Vitamin B12 Level 312, Folate 11.7 , Thyroid Stimulating Hormone (TSH) 3.183 Height (Feet): 5 Height (Inches): 7.00 Weight (Pounds): 195 Morena Esquivel MD Nov 25, 2019 21:31
[2019-11-26] VITALS: BP 145/66
[2019-11-26 04:00] VITALS: BP 127/69
[2019-11-26] MEDS: NovoLOG Insulin Flexpen SUBQ SCH ×4 (06:11→21:00)
--- NOTE | 2019-11-26 06:46 | General Progress Note ---
Assessment/Plan Problem List: (1) Diabetes mellitus ICD Codes: E11.9 - Type 2 diabetes mellitus without complications SNOMED: 47508544 (2) Hyperkalemia ICD Codes: E87.5 - Hyperkalemia SNOMED: 86010217, 562547360 (3) Dizziness ICD Codes: R42 - Dizziness and giddiness SNOMED: 967008069, 177092398 (4) Diarrhea ICD Codes: R19.7 - Diarrhea, unspecified SNOMED: 01006432, 641985415 Qualifiers: Qualified Codes: R19.7 - Diarrhea, unspecified (5) Renal insufficiency ICD Codes: N28.9 - Disorder of kidney and ureter, unspecified SNOMED: 042965896, 619822261 Status: progressing Assessment/Plan: continue Levemir 10 units daily continue Novolog sliding scale ac / hs hypoglycemia protocol in order Subjective ROS Limited/Unobtainable: Yes Allergies: Coded Allergies: No Known Allergies (Unverified , 11/23/19) Subjective events noted glucose values are stable Item Value Date Time Bedside Blood Glucose 153 mg/dl H 11/26/19 0611 Bedside Blood Glucose 145 mg/dl H 11/25/19 2217 Bedside Blood Glucose 166 mg/dl H 11/25/19 1630 Bedside Blood Glucose 162 mg/dl H 11/25/19 1144 Bedside Blood Glucose 165 mg/dl H 11/25/19 0851 Bedside Blood Glucose 125 mg/dl H 11/25/19 0625 Objective Last 24 Hour Vital Signs Date Time Temp Pulse Resp B/P (MAP) Pulse Ox O2 Delivery O2 Flow Rate FiO2 11/26/19 04:00 98.2 56 20 127/69 (88) 98 11/26/19 04:00 63 11/26/19 00:00 97.7 67 17 145/66 (92) 96 11/26/19 00:00 56 11/25/19 21:00 Room Air 11/25/19 20:00 58 11/25/19 20:00 97.7 56 16 136/65 (88) 97 11/25/19 16:00 64 11/25/19 16:00 97.9 64 20 112/70 (84) 98 11/25/19 12:00 96.4 58 20 124/70 (88) 96 11/25/19 12:00 58 11/25/19 09:26 62 11/25/19 09:26 98.6 62 20 128/70 (89) 96 11/25/19 09:00 Room Air 11/25/19 08:00 98.6 62 20 128/70 (89) 96 Intake and Output 11/25/19 11/26/19 19:00 07:00 Intake Total 140 ml Output Total 1200 ml Balance -1060 ml Intake Oral 140 ml Output Urine Total 1200 ml # Voids 3 # Bowel Movements 2 2 Height (Feet): 5 Height (Inches): 7.00 Weight (Pounds): 195 General Appearance: no apparent distress Neck: normal alignment Cardiovascular: normal rate Respiratory/Chest: lungs clear Abdomen: normal bowel sounds Objective Current Medications Medications (Trade) Dose Ordered Sig/Zain Route PRN Reason Start Time Stop Time Status Last Admin Dose Admin Barium Sulfate (Readi-Cat 2) 450 ml NOW PRN ORAL Radiology Procedure 11/24/19 12:15 11/26/19 12:12 Dextrose (Dextrose 50%) 25 ml Q30M PRN IV Hypoglycemia 11/24/19 01:30 02/22/20 01:29 Dextrose (Dextrose 50%) 50 ml Q30M PRN IV Hypoglycemia 11/24/19 01:30 02/22/20 01:29 Docusate Sodium (Colace) 100 mg TWICE A DAY ORAL 11/25/19 18:00 12/25/19 17:59 11/25/19 17:42 Insulin Aspart (NovoLOG) BEFORE MEALS AND HS SUBQ 11/24/19 06:30 02/22/20 06:29 11/26/19 06:11 Insulin Detemir (Levemir) 10 units DAILY SUBQ 11/24/19 09:00 02/22/20 08:59 11/25/19 08:51 Iohexol (OMNIPAQUE-300 100ml) 100 ml NOW PRN INJ Radiology Procedure 11/24/19 12:15 11/26/19 12:12 Ondansetron HCl (Zofran) 4 mg Q6H PRN IVP Nausea & Vomiting 11/24/19 01:30 12/24/19 01:29 Pantoprazole (Protonix) 40 mg EVERY 12 HOURS ORAL 11/24/19 21:00 12/24/19 20:59 11/25/19 21:41 Polyethylene Glycol (Miralax) 17 gm BEDTIME ORAL 11/25/19 21:00 12/25/19 20:59 Oskar Dominique MD Nov 26, 2019 06:46
[2019-11-26 08:00] VITALS: BP 131/61
[2019-11-26] MEDS: Docusate 100mg cap ORAL SCH ×2 (09:57→18:00)
[2019-11-26] MEDS: Levemir Flexpen SUBQ SCH (09:57)
--- NOTE | 2019-11-26 10:13 | Cardiac Electrophysiology PN ---
Assessment/Plan Assessment/Plan 1. 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 I do not see any evidence of complete heart block. Heart rate remains in the 50s and 60s. Patient stays off of any sinus node, AV node, or AV be blocking agents. His TSH is also within normal range. We will watch patient on telemetry. Currently, there is no indication for pacemaker at this point. 2. Renal insufficiency and hyperkalemia. Creatinine is improved to 1.4. Fu by Dr. Luna. 3. Diabetes. 4. Diarrhea. Further evaluation by GI. Subjective Subjective Remained in SR. No new events Objective Last 24 Hour Vital Signs Date Time Temp Pulse Resp B/P (MAP) Pulse Ox O2 Delivery O2 Flow Rate FiO2 11/26/19 08:00 97.9 60 19 131/61 (84) 94 11/26/19 04:00 98.2 56 20 127/69 (88) 98 11/26/19 04:00 63 11/26/19 00:00 97.7 67 17 145/66 (92) 96 11/26/19 00:00 56 11/25/19 21:00 Room Air 11/25/19 20:00 58 11/25/19 20:00 97.7 56 16 136/65 (88) 97 11/25/19 16:00 64 11/25/19 16:00 97.9 64 20 112/70 (84) 98 11/25/19 12:00 96.4 58 20 124/70 (88) 96 11/25/19 12:00 58 Intake and Output 11/25/19 11/26/19 19:00 07:00 Intake Total 140 ml 115 ml Output Total 1200 ml Balance -1060 ml 115 ml Intake Oral 140 ml 115 ml Output Urine Total 1200 ml # Voids 3 2 # Bowel Movements 2 2 Laboratory Tests Test 11/26/19 04:00 Troponin I 0.011 ng/mL (0.000-0.056) Objective HEAD AND NECK: No JVD. LUNGS: Clear. CARDIOVASCULAR: Regular S1 and S2 with no gallop. ABDOMEN: Soft. EXTREMITIES: No pitting edema. Buddy Condon MD Nov 26, 2019 10:13
--- NOTE | 2019-11-26 10:35 | General Progress Note ---
Assessment/Plan Problem List: (1) Renal insufficiency ICD Codes: N28.9 - Disorder of kidney and ureter, unspecified SNOMED: 917252698, 759571554 (2) Diarrhea ICD Codes: R19.7 - Diarrhea, unspecified SNOMED: 01378092, 861628803 Qualifiers: Qualified Codes: R19.7 - Diarrhea, unspecified (3) Diabetes mellitus ICD Codes: E11.9 - Type 2 diabetes mellitus without complications SNOMED: 72654721 (4) Dizziness ICD Codes: R42 - Dizziness and giddiness SNOMED: 814003257, 983714163 (5) Hyperkalemia ICD Codes: E87.5 - Hyperkalemia SNOMED: 92186754, 121851288 Status: progressing Assessment/Plan: CT reviewed fatty liver diverticulosis colace and miralax on diet fu labs will fu Subjective ROS Limited/Unobtainable: Yes Allergies: Coded Allergies: No Known Allergies (Unverified , 11/23/19) Objective Last 24 Hour Vital Signs Date Time Temp Pulse Resp B/P (MAP) Pulse Ox O2 Delivery O2 Flow Rate FiO2 11/26/19 08:00 97.9 60 19 131/61 (84) 94 11/26/19 04:00 98.2 56 20 127/69 (88) 98 11/26/19 04:00 63 11/26/19 00:00 97.7 67 17 145/66 (92) 96 11/26/19 00:00 56 11/25/19 21:00 Room Air 11/25/19 20:00 58 11/25/19 20:00 97.7 56 16 136/65 (88) 97 11/25/19 16:00 64 11/25/19 16:00 97.9 64 20 112/70 (84) 98 11/25/19 12:00 96.4 58 20 124/70 (88) 96 11/25/19 12:00 58 Intake and Output 11/25/19 11/26/19 19:00 07:00 Intake Total 140 ml 115 ml Output Total 1200 ml Balance -1060 ml 115 ml Intake Oral 140 ml 115 ml Output Urine Total 1200 ml # Voids 3 2 # Bowel Movements 2 2 Laboratory Tests 11/26/19 04:00: Troponin I 0.011 Height (Feet): 5 Height (Inches): 7.00 Weight (Pounds): 195 General Appearance: alert EENT: normal ENT inspection Neck: supple Cardiovascular: normal rate Respiratory/Chest: decreased breath sounds Abdomen: normal bowel sounds, non tender, soft Extremities: non-tender Sabino Magdaleno MD Nov 26, 2019 10:35
--- NOTE | 2019-11-26 10:46 | Nephrology Progress Note ---
Assessment/Plan Problem List: (1) Renal insufficiency (2) Diabetes mellitus (3) Hyperkalemia (4) Dizziness (5) Diarrhea Assessment Elevated potassium of 6 and creatinine of 1.4 now corrected Diabetes mellitus Dizziness upon admission Diarrhea Plan Status quo. Continue per consultants. Check orthostatics Urine for analysis Monitor renal parameters and electrolytes Per orders Subjective ROS Limited/Unobtainable: No Constitutional: Reports: malaise Objective Objective Last 24 Hour Vital Signs Date Time Temp Pulse Resp B/P (MAP) Pulse Ox O2 Delivery O2 Flow Rate FiO2 11/26/19 08:00 97.9 60 19 131/61 (84) 94 11/26/19 04:00 98.2 56 20 127/69 (88) 98 11/26/19 04:00 63 11/26/19 00:00 97.7 67 17 145/66 (92) 96 11/26/19 00:00 56 11/25/19 21:00 Room Air 11/25/19 20:00 58 11/25/19 20:00 97.7 56 16 136/65 (88) 97 11/25/19 16:00 64 11/25/19 16:00 97.9 64 20 112/70 (84) 98 11/25/19 12:00 96.4 58 20 124/70 (88) 96 11/25/19 12:00 58 Intake and Output 11/25/19 11/26/19 19:00 07:00 Intake Total 140 ml 115 ml Output Total 1200 ml Balance -1060 ml 115 ml Intake Oral 140 ml 115 ml Output Urine Total 1200 ml # Voids 3 2 # Bowel Movements 2 2 Laboratory Tests 11/26/19 04:00: Troponin I 0.011 No labs can panel drawn today Height (Feet): 5 Height (Inches): 7.00 Weight (Pounds): 195 General Appearance: no apparent distress Cardiovascular: normal rate Respiratory/Chest: lungs clear Abdomen: soft Objective No change Titi Luna MD Nov 26, 2019 10:46
[2019-11-26 12:00] VITALS: BP 141/67
[2019-11-26 16:00] VITALS: BP 145/67
[2019-11-26 20:00] VITALS: BP 151/68
[2019-11-26] MEDS: Miralax 17gm pkt ORAL SCH (21:00)
--- NOTE | 2019-11-26 21:10 | General Progress Note ---
Assessment/Plan Problem List: (1) Hyperkalemia ICD Codes: E87.5 - Hyperkalemia SNOMED: 13536090, 057215477 (2) Dizziness ICD Codes: R42 - Dizziness and giddiness SNOMED: 588899579, 643447808 (3) Diabetes mellitus ICD Codes: E11.9 - Type 2 diabetes mellitus without complications SNOMED: 00201345 (4) Renal insufficiency ICD Codes: N28.9 - Disorder of kidney and ureter, unspecified SNOMED: 161086823, 062396996 Status: progressing Assessment/Plan: bradycardia will discuss w dr montes re treatment plan dm lyte abnormality afebrile Subjective ROS Limited/Unobtainable: Yes Allergies: Coded Allergies: No Known Allergies (Unverified , 11/23/19) Objective Last 24 Hour Vital Signs Date Time Temp Pulse Resp B/P (MAP) Pulse Ox O2 Delivery O2 Flow Rate FiO2 11/26/19 16:00 97.9 58 18 145/67 (93) 96 11/26/19 16:00 63 11/26/19 12:00 58 11/26/19 12:00 97.9 60 19 141/67 (91) 95 11/26/19 09:00 Room Air 11/26/19 08:00 67 11/26/19 08:00 97.9 60 19 131/61 (84) 94 11/26/19 04:00 98.2 56 20 127/69 (88) 98 11/26/19 04:00 63 11/26/19 00:00 97.7 67 17 145/66 (92) 96 11/26/19 00:00 56 Intake and Output 11/25/19 11/26/19 19:00 07:00 Intake Total 140 ml 115 ml Output Total 1200 ml Balance -1060 ml 115 ml Intake Oral 140 ml 115 ml Output Urine Total 1200 ml # Voids 3 2 # Bowel Movements 2 2 Laboratory Tests 11/26/19 04:00: Troponin I 0.011 Height (Feet): 5 Height (Inches): 7.00 Weight (Pounds): 195 Morena Esquivel MD Nov 26, 2019 21:10
[2019-11-27] VITALS (10 sets, daily range): BP systolic 124–164; BP diastolic 65–83
[2019-11-27 05:29] LABS: BASOPHILS % (AUTO) 0.9 % (0.0-2.0); HEMATOCRIT 45.1 % (42.0-52.0); HEMOGLOBIN 13.8 G/DL (14.2-18.0); LYMPHOCYTES % (AUTO) 34.6 % (20.0-45.0); MEAN CORPUSCULAR VOLUME 97 FL (80-99); MONOCYTES % (AUTO) 8.9 % (1.0-10.0); NEUTROPHILS % (AUTO) 52.6 % (45.0-75.0); PLATELET COUNT 194 K/UL (150-450); RED BLOOD COUNT 4.66 M/UL (4.70-6.10); RED CELL DISTRIBUTION WIDTH 14.2 % (11.6-14.8); WHITE BLOOD COUNT 6.6 K/UL (4.8-10.8)
[2019-11-27 05:39] LABS: INR 1.1 (0.9-1.1)
[2019-11-27 05:46] LABS: ALANINE AMINOTRANSFERASE 58 U/L (12-78); ALBUMIN 3.4 G/DL (3.4-5.0); ALBUMIN/GLOBULIN RATIO 0.9 (1.0-2.7); ALKALINE PHOSPHATASE 70 U/L (46-116); ANION GAP 7 mmol/L (5-15); ASPARTATE AMINO TRANSFERASE 31 U/L (15-37); BILIRUBIN,TOTAL 0.5 MG/DL (0.2-1.0); BLOOD UREA NITROGEN 20 mg/dL (7-18); CALCIUM 8.2 MG/DL (8.5-10.1); CARBON DIOXIDE 30 MMOL/L (21-32); CHLORIDE 102 MMOL/L (98-107); PHOSPHORUS 4.4 MG/DL (2.5-4.9); POTASSIUM 3.9 MMOL/L (3.5-5.1); SODIUM 139 MMOL/L (136-145)
[2019-11-27] MEDS: NovoLOG Insulin Flexpen SUBQ SCH ×4 (05:48→21:32)
--- NOTE | 2019-11-27 06:55 | General Progress Note ---
Assessment/Plan Problem List: (1) Diabetes mellitus ICD Codes: E11.9 - Type 2 diabetes mellitus without complications SNOMED: 83973268 (2) Hyperkalemia ICD Codes: E87.5 - Hyperkalemia SNOMED: 25626112, 729888889 (3) Dizziness ICD Codes: R42 - Dizziness and giddiness SNOMED: 665718574, 687335151 (4) Diarrhea ICD Codes: R19.7 - Diarrhea, unspecified SNOMED: 51969000, 009016603 Qualifiers: Qualified Codes: R19.7 - Diarrhea, unspecified (5) Renal insufficiency ICD Codes: N28.9 - Disorder of kidney and ureter, unspecified SNOMED: 673525430, 211320367 Status: progressing Assessment/Plan: continue Levemir 10 units daily continue Novolog sliding scale ac / hs hypoglycemia protocol in order Subjective Allergies: Coded Allergies: No Known Allergies (Unverified , 11/23/19) Subjective events noted glucose values are stable Item Value Date Time Bedside Blood Glucose 159 mg/dl H 11/27/19 0609 Bedside Blood Glucose 259 mg/dl H 11/26/19 1832 Bedside Blood Glucose 175 mg/dl H 11/26/19 1216 Bedside Blood Glucose 179 mg/dl H 11/26/19 0957 Bedside Blood Glucose 153 mg/dl H 11/26/19 0611 Objective Last 24 Hour Vital Signs Date Time Temp Pulse Resp B/P (MAP) Pulse Ox O2 Delivery O2 Flow Rate FiO2 11/27/19 04:00 59 11/27/19 04:00 97.9 60 18 138/67 (90) 96 11/27/19 00:00 98.1 62 18 142/65 (90) 98 11/26/19 23:53 60 11/26/19 21:00 Room Air Room Air 11/26/19 20:00 98.6 70 16 151/68 (95) 97 11/26/19 19:55 54 11/26/19 16:00 97.9 58 18 145/67 (93) 96 11/26/19 16:00 63 11/26/19 12:00 58 11/26/19 12:00 97.9 60 19 141/67 (91) 95 11/26/19 09:00 Room Air 11/26/19 08:00 67 6/18/20 08:00 97.9 60 19 131/61 (84) 94 Intake and Output 11/26/19 11/27/19 19:00 07:00 Intake Total 600 ml 120 ml Output Total 200 ml Balance 400 ml 120 ml Intake Oral 600 ml 120 ml Output Urine Total 200 ml # Voids 3 3 # Bowel Movements 1 1 Laboratory Tests 11/27/19 05:15: White Blood Count 6.6, Red Blood Count 4.66L, Hemoglobin 13.8L, Hematocrit 45.1 , Mean Corpuscular Volume 97, Mean Corpuscular Hemoglobin 29.6, Mean Corpuscular Hemoglobin Concent 30.6L, Red Cell Distribution Width 14.2, Platelet Count 194, Mean Platelet Volume 9.9, Neutrophils (%) (Auto) 52.6, Lymphocytes (%) (Auto) 34.6, Monocytes (%) (Auto) 8.9, Eosinophils (%) (Auto) 3.0, Basophils (%) (Auto) 0.9, Prothrombin Time 11.6H, Prothromb Time International Ratio 1.1, Activated Partial Thromboplast Time 26, Sodium Level 139, Potassium Level 3.9, Chloride Level 102, Carbon Dioxide Level 30, Anion Gap 7, Blood Urea Nitrogen 20H, Creatinine 1.0, Estimat Glomerular Filtration Rate > 60, Glucose Level 185H, Calcium Level 8.2L, Phosphorus Level 4.4, Magnesium Level 1.6L, Total Bilirubin 0.5, Aspartate Amino Transf (AST/SGOT) 31 , Alanine Aminotransferase (ALT/SGPT) 58, Alkaline Phosphatase 70, Total Protein 7.1, Albumin 3.4, Globulin 3.7, Albumin/Globulin Ratio 0.9L Height (Feet): 5 Height (Inches): 7.00 Weight (Pounds): 195 General Appearance: no apparent distress Neck: normal alignment Cardiovascular: normal rate Respiratory/Chest: lungs clear Abdomen: normal bowel sounds Objective Current Medications Medications (Trade) Dose Ordered Sig/Zain Route PRN Reason Start Time Stop Time Status Last Admin Dose Admin Dextrose (Dextrose 50%) 25 ml Q30M PRN IV Hypoglycemia 11/26/19 21:00 02/22/20 01:29 Dextrose (Dextrose 50%) 50 ml Q30M PRN IV Hypoglycemia 11/26/19 21:00 02/22/20 01:29 Docusate Sodium (Colace) 100 mg TWICE A DAY ORAL 11/27/19 09:00 12/25/19 17:59 Insulin Aspart (NovoLOG) BEFORE MEALS AND HS SUBQ 11/26/19 21:00 02/22/20 06:29 Insulin Detemir (Levemir) 10 units DAILY SUBQ 11/27/19 09:00 02/22/20 08:59 Ondansetron HCl (Zofran) 4 mg Q6H PRN IVP Nausea & Vomiting 11/26/19 20:34 12/26/19 20:33 Pantoprazole (Protonix) 40 mg EVERY 12 HOURS ORAL 11/26/19 21:00 12/24/19 20:59 Polyethylene Glycol (Miralax) 17 gm BEDTIME ORAL 11/26/19 21:00 12/25/19 20:59 Oskar Dominique MD Nov 27, 2019 06:55
[2019-11-27] MEDS: Docusate 100mg cap ORAL SCH ×2 (08:32→19:06)
[2019-11-27] MEDS ORDERED: Levemir Flexpen SUBQ SCH (09:00)
--- NOTE | 2019-11-27 09:02 | Cardiac Electrophysiology PN ---
Assessment/Plan Assessment/Plan 1. 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 Now is having intermittent complete heart block and > 5 second pauses off of any sinus node, AV node, or AV be blocking agents. His TSH is also within normal range. This is a class 1 indication for PPM implant. DW patient with RN the risks and benefits of PPM implant and he agreed to proceed. 2. Renal insufficiency . Resolved. Fu by Dr. Luna. 3. Diabetes. 4. Diarrhea. Further evaluation by GI. NOEL RN, Charge nurse, nursing supervisor plate forming, OR scheduling and Dr Gutierres Subjective Subjective Developed CHB at 4 pm yesterday with > 5 second pause. Now NPO for PPM implant Objective Last 24 Hour Vital Signs Date Time Temp Pulse Resp B/P (MAP) Pulse Ox O2 Delivery O2 Flow Rate FiO2 11/27/19 04:00 59 11/27/19 04:00 97.9 60 18 138/67 (90) 96 11/27/19 00:00 98.1 62 18 142/65 (90) 98 11/26/19 23:53 60 11/26/19 21:00 Room Air Room Air 11/26/19 20:00 98.6 70 16 151/68 (95) 97 11/26/19 19:55 54 11/26/19 16:00 97.9 58 18 145/67 (93) 96 11/26/19 16:00 63 11/26/19 12:00 58 11/26/19 12:00 97.9 60 19 141/67 (91) 95 11/26/19 09:00 Room Air Intake and Output 11/26/19 11/27/19 19:00 07:00 Intake Total 600 ml 120 ml Output Total 200 ml Balance 400 ml 120 ml Intake Oral 600 ml 120 ml Output Urine Total 200 ml # Voids 3 3 # Bowel Movements 1 1 Laboratory Tests Test 11/27/19 05:15 White Blood Count 6.6 K/UL (4.8-10.8) Red Blood Count 4.66 M/UL (4.70-6.10) L Hemoglobin 13.8 G/DL (14.2-18.0) L Hematocrit 45.1 % (42.0-52.0) Mean Corpuscular Volume 97 FL (80-99) Mean Corpuscular Hemoglobin 29.6 PG (27.0-31.0) Mean Corpuscular Hemoglobin Concent 30.6 G/DL (32.0-36.0) L Red Cell Distribution Width 14.2 % (11.6-14.8) Platelet Count 194 K/UL (150-450) Mean Platelet Volume 9.9 FL (6.5-10.1) Neutrophils (%) (Auto) 52.6 % (45.0-75.0) Lymphocytes (%) (Auto) 34.6 % (20.0-45.0) Monocytes (%) (Auto) 8.9 % (1.0-10.0) Eosinophils (%) (Auto) 3.0 % (0.0-3.0) Basophils (%) (Auto) 0.9 % (0.0-2.0) Prothrombin Time 11.6 SEC (9.30-11.50) H Prothromb Time International Ratio 1.1 (0.9-1.1) Activated Partial Thromboplast Time 26 SEC (23-33) Sodium Level 139 MMOL/L (136-145) Potassium Level 3.9 MMOL/L (3.5-5.1) Chloride Level 102 MMOL/L (98-107) Carbon Dioxide Level 30 MMOL/L (21-32) Anion Gap 7 mmol/L (5-15) Blood Urea Nitrogen 20 mg/dL (7-18) H Creatinine 1.0 MG/DL (0.55-1.30) Estimat Glomerular Filtration Rate > 60 mL/min (>60) Glucose Level 185 MG/DL (74-106) H Calcium Level 8.2 MG/DL (8.5-10.1) L Phosphorus Level 4.4 MG/DL (2.5-4.9) Magnesium Level 1.6 MG/DL (1.8-2.4) L Total Bilirubin 0.5 MG/DL (0.2-1.0) Aspartate Amino Transf (AST/SGOT) 31 U/L (15-37) Alanine Aminotransferase (ALT/SGPT) 58 U/L (12-78) Alkaline Phosphatase 70 U/L (46-116) Total Protein 7.1 G/DL (6.4-8.2) Albumin 3.4 G/DL (3.4-5.0) Globulin 3.7 g/dL Albumin/Globulin Ratio 0.9 (1.0-2.7) L Objective HEAD AND NECK: No JVD. LUNGS: Clear. CARDIOVASCULAR: Regular S1 and S2 with no gallop. ABDOMEN: Soft. EXTREMITIES: No pitting edema. Buddy Condon MD Nov 27, 2019 09:02
[2019-11-27] MEDS ORDERED: Lidocaine 1% Plain 30 ml INJ ONE (09:14)
[2019-11-27] MEDS ORDERED: Isovue-M 300 15ml INJ ONE (09:14)
--- NOTE | 2019-11-27 09:51 | Pre-Procedure Note/Attestation ---
Pre-Procedure Note/Attestation Complete Prior to Procedure Planned Procedure: left Indications for Procedure Pre-Operative Diagnosis: Intermittent CHB Attestation I attest that I discussed the nature of the procedure; its benefits; risks and complications; and alternatives (and the risks and benefits of such alternatives ), prior to the procedure, with the patient (or the patient's legal installation service representative). I attest that, if there was a reasonable possibility of needing a blood transfusion, the patient (or the patient's legal installation service representative) was given the [facility] standardized written summary, pursuant to the [place] Blood Safety Act ([place] Health and Safety Code # 1645, as amended). I attest that I re-evaluated the patient just prior to the surgery and that there has been no change in the patient's H&P, except as documented below: Buddy Condon MD Nov 27, 2019 09:51
--- NOTE | 2019-11-27 10:09 | Nephrology Progress Note ---
Assessment/Plan Problem List: (1) Renal insufficiency (2) Diabetes mellitus (3) Hyperkalemia (4) Dizziness (5) Diarrhea Assessment Elevated potassium of 6 and creatinine of 1.4 now corrected Diabetes mellitus Dizziness upon admission Diarrhea Plan Patient in [place], has periodic complete heart block, at times with 6-second pause , due for pacemaker placement. Discussed with Status quo. Continue per consultants. Check orthostatics Urine for analysis Monitor renal parameters and electrolytes Per orders Subjective ROS Limited/Unobtainable: No Constitutional: Reports: malaise, weakness Objective Objective Last 24 Hour Vital Signs Date Time Temp Pulse Resp B/P (MAP) Pulse Ox O2 Delivery O2 Flow Rate FiO2 11/27/19 09:00 Room Air Room Air 11/27/19 08:00 97.5 55 20 138/68 (91) 96 11/27/19 08:00 64 11/27/19 04:00 59 11/27/19 04:00 97.9 60 18 138/67 (90) 96 11/27/19 00:00 98.1 62 18 142/65 (90) 98 11/26/19 23:53 60 11/26/19 21:00 Room Air Room Air 11/26/19 20:00 98.6 70 16 151/68 (95) 97 11/26/19 19:55 54 11/26/19 16:00 97.9 58 18 145/67 (93) 96 11/26/19 16:00 63 11/26/19 12:00 58 11/26/19 12:00 97.9 60 19 141/67 (91) 95 Intake and Output 11/26/19 11/27/19 19:00 07:00 Intake Total 600 ml 120 ml Output Total 200 ml Balance 400 ml 120 ml Intake Oral 600 ml 120 ml Output Urine Total 200 ml # Voids 3 3 # Bowel Movements 1 1 Laboratory Tests 11/27/19 05:15: White Blood Count 6.6, Red Blood Count 4.66L, Hemoglobin 13.8L, Hematocrit 45.1 , Mean Corpuscular Volume 97, Mean Corpuscular Hemoglobin 29.6, Mean Corpuscular Hemoglobin Concent 30.6L, Red Cell Distribution Width 14.2, Platelet Count 194, Mean Platelet Volume 9.9, Neutrophils (%) (Auto) 52.6, Lymphocytes (%) (Auto) 34.6, Monocytes (%) (Auto) 8.9, Eosinophils (%) (Auto) 3.0, Basophils (%) (Auto) 0.9, Prothrombin Time 11.6H, Prothromb Time International Ratio 1.1, Activated Partial Thromboplast Time 26, Sodium Level 139, Potassium Level 3.9, Chloride Level 102, Carbon Dioxide Level 30, Anion Gap 7, Blood Urea Nitrogen 20H, Creatinine 1.0, Estimat Glomerular Filtration Rate > 60, Glucose Level 185H, Calcium Level 8.2L, Phosphorus Level 4.4, Magnesium Level 1.6L, Total Bilirubin 0.5, Aspartate Amino Transf (AST/SGOT) 31 , Alanine Aminotransferase (ALT/SGPT) 58, Alkaline Phosphatase 70, Total Protein 7.1, Albumin 3.4, Globulin 3.7, Albumin/Globulin Ratio 0.9L Height (Feet): 5 Height (Inches): 9.00 Weight (Pounds): 197 General Appearance: no apparent distress Cardiovascular: other - Variable Respiratory/Chest: lungs clear Abdomen: soft Objective No change Titi Luna MD Nov 27, 2019 10:09
[2019-11-27] MEDS ORDERED: fentaNYL 100 mcg/2 mL IV ONE (10:13)
[2019-11-27] MEDS ORDERED: Sterile Water Irrig 1000ml IRRIG ONE (10:30)
--- NOTE | 2019-11-27 11:01 | Anethesia Preoperative Eval ---
Anesthesia Pre-op PMH/ROS General Date of Evaluation: Nov 27, 2019 Time of Evaluation: 10:25 Anesthesiologist: Lukas ASA Score: ASA 3 Mallampati Score Class I : Soft palate, uvula, fauces, pillars visible Class II: Soft palate, uvula, fauces visible Class III: Soft palate, base of uvula visible Class IV: Only hard plate visible Mallampati Classification: Class III Surgeon: Charlee Diagnosis: Symptomatic bradicardia Surgical Procedure: Pacemaer placemet Anesthesia History: none Family History: no anesthesia problems Allergies: Coded Allergies: No Known Allergies (Unverified , 11/23/19) Medications: see eMAR Patient NPO?: Yes Past Medical History Cardiovascular: Reports: HTN, arrhythmia; Denies: CAD, VA, valve dz, other Pulmonary: Denies: asthma, COPD, BRANDON, other Gastrointestinal/Genitourinary: Reports: GERD; Denies: CRI, ESRD, other Neurologic/Psychiatric: Denies: dementia, CVA, depression/anxiety, TIA, other Endocrine: Denies: DM, hypothyroidism, steroids, other HEENT: Denies: cataract (L), cataract (R), glaucoma, TLINGIT & HAIDA (L), TLINGIT & HAIDA (R), other Hematology/Immune: Denies: anemia, DVT, bleeding disorder, other Musculoskeletal/Integumentary: Denies: OA, RA, DJD, DDD, edema, other PMH Narrative: as above PSxH Narrative: See H&P Anesthesia Pre-op Phys. Exam Physician Exam Last Vital Signs Date Time Temp Pulse Resp B/P (MAP) Pulse Ox O2 Delivery O2 Flow Rate FiO2 11/27/19 09:00 Room Air Room Air 11/27/19 08:00 97.5 55 20 138/68 (91) 96 Constitutional: NAD Neurologic: CN 2-12 intact Cardiovascular: RRR, no M/R/G Respiratory: CTA Gastrointestinal: S/NT/ND Airway Exam Mallampati Score: Class III MO: limited Neck: sshort ROM: limited Teeth: missing Dentures: no upper, no lower Anesthesia Pre-op A/P Labs Hematology Test 11/27/19 05:15 White Blood Count 6.6 K/UL (4.8-10.8) Red Blood Count 4.66 M/UL (4.70-6.10) L Hemoglobin 13.8 G/DL (14.2-18.0) L Hematocrit 45.1 % (42.0-52.0) Mean Corpuscular Volume 97 FL (80-99) Mean Corpuscular Hemoglobin 29.6 PG (27.0-31.0) Mean Corpuscular Hemoglobin Concent 30.6 G/DL (32.0-36.0) L Red Cell Distribution Width 14.2 % (11.6-14.8) Platelet Count 194 K/UL (150-450) Mean Platelet Volume 9.9 FL (6.5-10.1) Neutrophils (%) (Auto) 52.6 % (45.0-75.0) Lymphocytes (%) (Auto) 34.6 % (20.0-45.0) Monocytes (%) (Auto) 8.9 % (1.0-10.0) Eosinophils (%) (Auto) 3.0 % (0.0-3.0) Basophils (%) (Auto) 0.9 % (0.0-2.0) Coagulation Test 11/27/19 05:15 Prothrombin Time 11.6 SEC (9.30-11.50) H Prothromb Time International Ratio 1.1 (0.9-1.1) Activated Partial Thromboplast Time 26 SEC (23-33) Chemistry Test 11/27/19 05:15 Sodium Level 139 MMOL/L (136-145) Potassium Level 3.9 MMOL/L (3.5-5.1) Chloride Level 102 MMOL/L (98-107) Carbon Dioxide Level 30 MMOL/L (21-32) Anion Gap 7 mmol/L (5-15) Blood Urea Nitrogen 20 mg/dL (7-18) H Creatinine 1.0 MG/DL (0.55-1.30) Estimat Glomerular Filtration Rate > 60 mL/min (>60) Glucose Level 185 MG/DL (74-106) H Calcium Level 8.2 MG/DL (8.5-10.1) L Phosphorus Level 4.4 MG/DL (2.5-4.9) Magnesium Level 1.6 MG/DL (1.8-2.4) L Total Bilirubin 0.5 MG/DL (0.2-1.0) Aspartate Amino Transf (AST/SGOT) 31 U/L (15-37) Alanine Aminotransferase (ALT/SGPT) 58 U/L (12-78) Alkaline Phosphatase 70 U/L (46-116) Total Protein 7.1 G/DL (6.4-8.2) Albumin 3.4 G/DL (3.4-5.0) Globulin 3.7 g/dL Albumin/Globulin Ratio 0.9 (1.0-2.7) L Studies Pre-op Studies: EKG - SB Risk Assessment & Plan Assessment: ASA 3 Plan: MAC Status Change Before Surgery: No Pre-Antibiotics Drug: Ancef 1gr Given Within 1 Hr of Incision: Yes Time Given: 10:40 Alvaro Horne MD Nov 27, 2019 11:01
[2019-11-27] MEDS ORDERED: fentaNYL 100 mcg/2 mL IV PRN (11:15)
--- NOTE | 2019-11-27 11:34 | Brief Operative Note ---
Immediate Post Operative Note Operative Note Pre-op Diagnosis: Intermittent CHB Procedure: successful DDD [facility] pacer implantation dictated Post-op Diagnosis: same as pre-op Specimen: none Complications: none Condition: stable Fluids: none Estimated Blood Loss: minimal Implant(s) used?: Yes Buddy Condon MD Nov 27, 2019 11:34
--- NOTE | 2019-11-27 11:45 | Immediate Post-Op Evaluation ---
Immediate Post-Op Evalulation Immediate Post-Op Evalulation Procedure: Permanent pacemaker placement Date of Evaluation: Nov 27, 2019 Time of Evaluation: 11:43 IV Fluids: 250 Blood Products: none Estimated Blood Loss: <50 Urinary Output: none Blood Pressure Systolic: 136 Blood Pressure Diastolic: 72 Pulse Rate: 62 Respiratory Rate: 20 O2 Sat by Pulse Oximetry: 99 Temperature (Fahrenheit): 97.8 Pain Score (1-10): 1 Nausea: No Vomiting: No Complications none Patient Status: awake, patent, none Hydration Status: adequate Alvaro Horne MD Nov 27, 2019 11:44
[2019-11-27] MEDS: Morphine Sulfate 2mg/ml Inj(IV/IM USE ONLY) IVP PRN (12:26)
--- NOTE | 2019-11-27 12:48 | General Progress Note ---
Assessment/Plan Problem List: (1) Renal insufficiency ICD Codes: N28.9 - Disorder of kidney and ureter, unspecified SNOMED: 387136068, 776787561 (2) Diarrhea ICD Codes: R19.7 - Diarrhea, unspecified SNOMED: 43683685, 245082833 Qualifiers: Qualified Codes: R19.7 - Diarrhea, unspecified (3) Diabetes mellitus ICD Codes: E11.9 - Type 2 diabetes mellitus without complications SNOMED: 36719751 (4) Dizziness ICD Codes: R42 - Dizziness and giddiness SNOMED: 079542571, 956692656 (5) Hyperkalemia ICD Codes: E87.5 - Hyperkalemia SNOMED: 33923615, 175509351 Status: progressing Assessment/Plan: CT reviewed fatty liver diverticulosis colace and miralax pending pacemaker placement for today fu labs will fu Subjective ROS Limited/Unobtainable: No Allergies: Coded Allergies: No Known Allergies (Unverified , 11/23/19) Objective Last 24 Hour Vital Signs Date Time Temp Pulse Resp B/P (MAP) Pulse Ox O2 Delivery O2 Flow Rate FiO2 11/27/19 11:44 62 20 99 11/27/19 09:00 Room Air Room Air 11/27/19 08:00 97.5 55 20 138/68 (91) 96 11/27/19 08:00 64 11/27/19 04:00 59 11/27/19 04:00 97.9 60 18 138/67 (90) 96 11/27/19 00:00 98.1 62 18 142/65 (90) 98 11/26/19 23:53 60 11/26/19 21:00 Room Air Room Air 11/26/19 20:00 98.6 70 16 151/68 (95) 97 11/26/19 19:55 54 11/26/19 16:00 97.9 58 18 145/67 (93) 96 11/26/19 16:00 63 Intake and Output 11/26/19 11/27/19 19:00 07:00 Intake Total 600 ml 120 ml Output Total 200 ml Balance 400 ml 120 ml Intake Oral 600 ml 120 ml Output Urine Total 200 ml # Voids 3 3 # Bowel Movements 1 1 Laboratory Tests 11/27/19 05:15: White Blood Count 6.6, Red Blood Count 4.66L, Hemoglobin 13.8L, Hematocrit 45.1 , Mean Corpuscular Volume 97, Mean Corpuscular Hemoglobin 29.6, Mean Corpuscular Hemoglobin Concent 30.6L, Red Cell Distribution Width 14.2, Platelet Count 194, Mean Platelet Volume 9.9, Neutrophils (%) (Auto) 52.6, Lymphocytes (%) (Auto) 34.6, Monocytes (%) (Auto) 8.9, Eosinophils (%) (Auto) 3.0, Basophils (%) (Auto) 0.9, Prothrombin Time 11.6H, Prothromb Time International Ratio 1.1, Activated Partial Thromboplast Time 26, Sodium Level 139, Potassium Level 3.9, Chloride Level 102, Carbon Dioxide Level 30, Anion Gap 7, Blood Urea Nitrogen 20H, Creatinine 1.0, Estimat Glomerular Filtration Rate > 60, Glucose Level 185H, Calcium Level 8.2L, Phosphorus Level 4.4, Magnesium Level 1.6L, Total Bilirubin 0.5, Aspartate Amino Transf (AST/SGOT) 31 , Alanine Aminotransferase (ALT/SGPT) 58, Alkaline Phosphatase 70, Total Protein 7.1, Albumin 3.4, Globulin 3.7, Albumin/Globulin Ratio 0.9L Height (Feet): 5 Height (Inches): 9.00 Weight (Pounds): 197 General Appearance: no apparent distress EENT: normal ENT inspection Neck: supple Cardiovascular: normal rate Respiratory/Chest: decreased breath sounds Abdomen: normal bowel sounds, non tender, soft Extremities: non-tender Sabino Magdaleno MD Nov 27, 2019 12:48
--- NOTE | 2019-11-27 14:03 | Diagnostic Imaging Report ---
Indication: Chest pain. Status post pacemaker placement. Assess for pneumothorax. Technique: XRAY Chest 1v Comparison: 11/23/2019 Findings: New left-sided dual-lead pacemaker with lead tips projecting of the left atrium and ventricle. Heart size and mediastinal contours are stable. Atherosclerotic calcifications again noted in the aorta. There is a subtle generalized interstitial prominence, similar to to the prior exam. No alveolar edema. No focal airspace consolidation. No pleural effusion pneumothorax. Osseous structures are stable. Impression: Status post pacemaker placement. No evidence of pneumothorax.
--- NOTE | 2019-11-27 14:38 | Diagnostic Imaging Report ---
CLINICAL HISTORY: Chest pain. Abnormal chest. Fluoroscopic imaging from pacemaker placement. COMPARISON: Chest radiograph 11/23/2019 FINDINGS: Fluoroscopy independent procedure performed for pacemaker insertion. 196 seconds of fluoroscopy time utilized by the ordering physician. Total cumulative dose is a 9.3 mGy and 1.25 mGy.m2. Total of 1 spot images are obtained . IMPRESSION: FLUOROSCOPY GUIDED PROCEDURE. PLEASE SEE OPERATIVE/PROCEDURE REPORT.
--- NOTE | 2019-11-27 16:41 | General Progress Note ---
Assessment/Plan Problem List: (1) Hyperkalemia ICD Codes: E87.5 - Hyperkalemia SNOMED: 18534603, 780682690 (2) Dizziness ICD Codes: R42 - Dizziness and giddiness SNOMED: 693373721, 319919260 (3) Diabetes mellitus ICD Codes: E11.9 - Type 2 diabetes mellitus without complications SNOMED: 39840165 (4) Renal insufficiency ICD Codes: N28.9 - Disorder of kidney and ureter, unspecified SNOMED: 232008080, 586150840 Status: progressing Assessment/Plan: symptomatic bradycardia w pause s/p pacemaker moniter afebrile Subjective ROS Limited/Unobtainable: Yes Allergies: Coded Allergies: No Known Allergies (Unverified , 11/23/19) Objective Last 24 Hour Vital Signs Date Time Temp Pulse Resp B/P (MAP) Pulse Ox O2 Delivery O2 Flow Rate FiO2 11/27/19 12:56 97.2 11/27/19 12:05 97.2 59 14 158/76 95 Room Air 11/27/19 12:00 97.5 60 21 147/77 (100) 95 11/27/19 12:00 62 11/27/19 11:50 59 19 161/78 99 Simple Mask 6 11/27/19 11:45 62 16 164/79 99 Simple Mask 6 11/27/19 11:44 62 20 99 11/27/19 11:41 97.0 61 15 157/83 99 Simple Mask 6 11/27/19 09:00 Room Air Room Air 11/27/19 08:00 97.5 55 20 138/68 (91) 96 11/27/19 08:00 64 11/27/19 04:00 59 11/27/19 04:00 97.9 60 18 138/67 (90) 96 11/27/19 00:00 98.1 62 18 142/65 (90) 98 11/26/19 23:53 60 11/26/19 21:00 Room Air Room Air 11/26/19 20:00 98.6 70 16 151/68 (95) 97 11/26/19 19:55 54 Intake and Output 11/26/19 11/27/19 19:00 07:00 Intake Total 600 ml 120 ml Output Total 200 ml Balance 400 ml 120 ml Intake Oral 600 ml 120 ml Output Urine Total 200 ml # Voids 3 3 # Bowel Movements 1 1 Laboratory Tests 11/27/19 05:15: White Blood Count 6.6, Red Blood Count 4.66L, Hemoglobin 13.8L, Hematocrit 45.1 , Mean Corpuscular Volume 97, Mean Corpuscular Hemoglobin 29.6, Mean Corpuscular Hemoglobin Concent 30.6L, Red Cell Distribution Width 14.2, Platelet Count 194, Mean Platelet Volume 9.9, Neutrophils (%) (Auto) 52.6, Lymphocytes (%) (Auto) 34.6, Monocytes (%) (Auto) 8.9, Eosinophils (%) (Auto) 3.0, Basophils (%) (Auto) 0.9, Prothrombin Time 11.6H, Prothromb Time International Ratio 1.1, Activated Partial Thromboplast Time 26, Sodium Level 139, Potassium Level 3.9, Chloride Level 102, Carbon Dioxide Level 30, Anion Gap 7, Blood Urea Nitrogen 20H, Creatinine 1.0, Estimat Glomerular Filtration Rate > 60, Glucose Level 185H, Calcium Level 8.2L, Phosphorus Level 4.4, Magnesium Level 1.6L, Total Bilirubin 0.5, Aspartate Amino Transf (AST/SGOT) 31 , Alanine Aminotransferase (ALT/SGPT) 58, Alkaline Phosphatase 70, Total Protein 7.1, Albumin 3.4, Globulin 3.7, Albumin/Globulin Ratio 0.9L Height (Feet): 5 Height (Inches): 9.00 Weight (Pounds): 197 Morena Esquivel MD Nov 27, 2019 16:41
--- NOTE | 2019-11-27 18:00 | Procedure Note ---
DATE OF PROCEDURE: 11/27/2019 PERMANENT PACEMAKER IMPLANTATION SURGEON: Buddy Condon MD. INDICATION FOR PROCEDURE: Symptomatic bradycardia in a patient with intermittent complete heart block with pauses of more than 5 seconds off of any sinus or AV be blocking agents. PROCEDURE PERFORMED: 1. Dual-chamber permanent pacemaker implantation. 2. Fluoroscopic supervision and interpretation. 3. Pacemaker programming during initial implant. OPERATIVE REPORT: The patient was brought into operating room in the fasting state and after informed consent was obtained. The patient was prepped and draped in usual fashion. Conscious sedation was provided by the anesthesiologist. After prep and drape and under sterile condition, a total of 30 mL lidocaine was given to left prepectoralis area. An incision was made along the left deltopectoral groove. Sharp and blunt dissection was made to the level of pectoralis fascia. The cephalic vein was isolated and cutdown was performed. The right atrial and right ventricular leads were placed through this access and was placed in right atrial appendage and right ventricular apex with excellent sensing and pacing parameters. Both leads were then affixed to underlying pectoralis fascia. A pocket was made close to the venous access site and irrigated with antibiotic solution. Both leads were then connected to the pacemaker and left in the pocket. The pocket was closed in three layers using 2-0 Vicryl and Dermabond. The patient suffered no immediate complications from the procedure and was transferred to recovery room in stable condition. FINDINGS: The pacemaker is from [employer], model number [id number], serial number [id number]. Right atrial lead is from [employer], model number 2088TC-52 cm, serial number [id number]. The right ventricular lead is from [employer], model number 2088TC-58 cm, serial number [id number]. The P-wave amplitude is 4 millivolts, threshold is 1 volt at 0.4 milliseconds, impedance of 560 ohms. The R-wave is 11.8 millivolts, threshold is 0.75 volts at 0.4 milliseconds, impedance of 790 ohms. IMPRESSION: 1. Successful dual-chamber permanent pacemaker implantation. 2. Pacemaker was programmed DDDR with lower rate of 60, upper rate of 105. 3. No immediate complications from procedure. Buddy Condon M.D. DR: KAYLA JOB#: [id number] CC:
[2019-11-27] MEDS: Miralax 17gm pkt ORAL SCH (21:00)
[2019-11-27] MEDS: ceFAZolin sod 1 GM in D5W 55 ML IVP SCH (21:33)
[2019-11-27] MEDS: Tylenol #3 tab (300mg/30mg) ORAL PRN (22:27)
[2019-11-28] VITALS: BP 140/72
[2019-11-28 04:00] VITALS: BP 135/70
[2019-11-28] MEDS: ceFAZolin sod 1 GM in D5W 55 ML IVP SCH ×3 (05:15→22:51)
[2019-11-28] MEDS: NovoLOG Insulin Flexpen SUBQ SCH ×4 (06:24→20:38)
--- NOTE | 2019-11-28 06:34 | General Progress Note ---
Assessment/Plan Problem List: (1) Diabetes mellitus ICD Codes: E11.9 - Type 2 diabetes mellitus without complications SNOMED: 96923274 (2) Hyperkalemia ICD Codes: E87.5 - Hyperkalemia SNOMED: 67496675, 676647914 (3) Dizziness ICD Codes: R42 - Dizziness and giddiness SNOMED: 319341476, 811536012 (4) Diarrhea ICD Codes: R19.7 - Diarrhea, unspecified SNOMED: 11005449, 032593232 Qualifiers: Qualified Codes: R19.7 - Diarrhea, unspecified (5) Renal insufficiency ICD Codes: N28.9 - Disorder of kidney and ureter, unspecified SNOMED: 781676819, 184143431 Status: progressing Assessment/Plan: change Levemir to 10 units qhs add Starlix 60 mg ac tid continue Novolog sliding scale ac / hs hypoglycemia protocol in order Subjective Allergies: Coded Allergies: No Known Allergies (Unverified , 11/23/19) Subjective events noted NPO for procedure Levemir is held this morning mealtime glucose was elevated yesterday Item Value Date Time Bedside Blood Glucose 264 mg/dl H 11/28/19 0624 Bedside Blood Glucose 259 mg/dl H 11/27/19 2132 Bedside Blood Glucose 257 mg/dl H 11/27/19 1630 Bedside Blood Glucose 243 mg/dl H 11/27/19 1221 Bedside Blood Glucose 159 mg/dl H 11/27/19 0833 Bedside Blood Glucose 159 mg/dl H 11/27/19 0609 Objective Last 24 Hour Vital Signs Date Time Temp Pulse Resp B/P (MAP) Pulse Ox O2 Delivery O2 Flow Rate FiO2 11/28/19 04:00 65 11/28/19 04:00 97.8 64 20 135/70 (91) 95 11/28/19 00:00 63 11/28/19 00:00 97.8 64 20 140/72 (94) 95 11/27/19 21:00 Room Air 11/27/19 20:00 77 11/27/19 20:00 97.7 72 20 127/73 (91) 95 11/27/19 16:00 60 11/27/19 16:00 97.3 70 20 124/70 (88) 95 11/27/19 12:56 97.2 11/27/19 12:05 97.2 59 14 158/76 95 Room Air 11/27/19 12:00 97.5 60 21 147/77 (100) 95 11/27/19 12:00 62 11/27/19 11:50 59 19 161/78 99 Simple Mask 6 11/27/19 11:45 62 16 164/79 99 Simple Mask 6 11/27/19 11:44 62 20 99 11/27/19 11:41 97.0 61 15 157/83 99 Simple Mask 6 11/27/19 09:00 Room Air Room Air 11/27/19 08:00 97.5 55 20 138/68 (91) 96 11/27/19 08:00 64 Intake and Output 11/27/19 11/28/19 19:00 07:00 Intake Total 750 ml 355 ml Output Total 450 ml Balance 300 ml 355 ml Intake Oral 450 ml 300 ml IV Total 300 ml 55 ml Output Urine Total 400 ml Estimated Blood Loss 50 ml # Voids 2 1 Height (Feet): 5 Height (Inches): 9.00 Weight (Pounds): 197 General Appearance: no apparent distress Neck: normal alignment Cardiovascular: normal rate Respiratory/Chest: lungs clear Abdomen: normal bowel sounds Pelvis: normal external exam Objective Current Medications Medications (Trade) Dose Ordered Sig/Zain Route PRN Reason Start Time Stop Time Status Last Admin Dose Admin Acetaminophen (Tylenol) 650 mg Q6H PRN ORAL Temp >100.5 11/27/19 11:45 12/27/19 11:44 Acetaminophen/ Codeine Phosphate (Tylenol #3) 1 tab Q4H PRN ORAL Moderate Pain (Pain Scale 4-6) 11/27/19 11:45 12/04/19 11:44 11/27/19 22:27 Cefazolin Sodium 1 gm/Dextrose 55 ml @ 110 mls/hr Q8HR IVP 11/27/19 22:00 12/04/19 21:59 11/28/19 05:15 Dextrose (Dextrose 50%) 25 ml Q30M PRN IV Hypoglycemia 11/26/19 21:00 02/22/20 01:29 Dextrose (Dextrose 50%) 50 ml Q30M PRN IV Hypoglycemia 11/26/19 21:00 02/22/20 01:29 Docusate Sodium (Colace) 100 mg TWICE A DAY ORAL 11/27/19 09:00 12/25/19 17:59 11/27/19 19:06 Insulin Aspart (NovoLOG) BEFORE MEALS AND HS SUBQ 11/26/19 21:00 02/22/20 06:29 11/28/19 06:24 Insulin Detemir (Levemir) 10 units DAILY SUBQ 11/27/19 09:00 02/22/20 08:59 Morphine Sulfate (Morphine Sulfate) 2 mg Q1H PRN IVP Severe Pain (Pain Scale 7-10) 11/27/19 11:45 12/04/19 11:44 11/27/19 12:26 Ondansetron HCl (Zofran) 4 mg Q6H PRN IVP Nausea & Vomiting 11/27/19 11:45 12/27/19 11:44 Pantoprazole (Protonix) 40 mg EVERY 12 HOURS ORAL 11/26/19 21:00 12/24/19 20:59 11/27/19 21:31 Polyethylene Glycol (Miralax) 17 gm BEDTIME ORAL 11/26/19 21:00 12/25/19 20:59 Oskar Dominique MD Nov 28, 2019 06:34
[2019-11-28 08:00] VITALS: BP 135/72
[2019-11-28] MEDS: Docusate 100mg cap ORAL SCH ×2 (08:55→17:04)
[2019-11-28] MEDS: Morphine Sulfate 2mg/ml Inj(IV/IM USE ONLY) IVP PRN (09:01)
[2019-11-28] MEDS ORDERED: Tubing IV Secondary IV ONE (09:31)
[2019-11-28] MEDS ORDERED: NS 275ml ONE (09:31)
[2019-11-28] MEDS: Nateglinide 60mg tab ORAL SCH ×2 (11:42→17:04)
--- NOTE | 2019-11-28 11:49 | Nephrology Progress Note ---
Assessment/Plan Problem List: (1) Renal insufficiency (2) Diabetes mellitus (3) Hyperkalemia (4) Dizziness (5) Diarrhea Assessment Elevated potassium of 6 and creatinine of 1.4 now corrected Diabetes mellitus Dizziness upon admission Diarrhea Plan Patient had a pacemaker on November 26. Reason for pacemaker was complete heart block. No can panel done today. Stable from renal standpoint of view. Previously: Patient in [facility], has periodic complete heart block, at times with 6-second pause , due for pacemaker placement. Discussed with Status quo. Continue per consultants. Check orthostatics Urine for analysis Monitor renal parameters and electrolytes Per orders Subjective ROS Limited/Unobtainable: No Constitutional: Reports: malaise Objective Objective Last 24 Hour Vital Signs Date Time Temp Pulse Resp B/P (MAP) Pulse Ox O2 Delivery O2 Flow Rate FiO2 11/28/19 08:34 76 11/28/19 08:00 Room Air 11/28/19 08:00 97.2 74 20 135/72 (93) 95 11/28/19 04:00 65 11/28/19 04:00 97.8 64 20 135/70 (91) 95 11/28/19 00:00 63 11/28/19 00:00 97.8 64 20 140/72 (94) 95 11/27/19 21:00 Room Air 11/27/19 20:00 77 11/27/19 20:00 97.7 72 20 127/73 (91) 95 11/27/19 16:00 60 11/27/19 16:00 97.3 70 20 124/70 (88) 95 11/27/19 12:56 97.2 11/27/19 12:05 97.2 59 14 158/76 95 Room Air 11/27/19 12:00 97.5 60 21 147/77 (100) 95 11/27/19 12:00 62 11/27/19 11:50 59 19 161/78 99 Simple Mask 6 Intake and Output 11/27/19 11/28/19 19:00 07:00 Intake Total 750 ml 355 ml Output Total 450 ml Balance 300 ml 355 ml Intake Oral 450 ml 300 ml IV Total 300 ml 55 ml Output Urine Total 400 ml Estimated Blood Loss 50 ml # Voids 2 1 Height (Feet): 5 Height (Inches): 9.00 Weight (Pounds): 197 General Appearance: no apparent distress Cardiovascular: normal rate Respiratory/Chest: lungs clear Abdomen: soft Objective No change Titi Luna MD Nov 28, 2019 11:49
[2019-11-28 12:00] VITALS: BP 136/75
--- NOTE | 2019-11-28 14:15 | Cardiac Electrophysiology PN ---
Assessment/Plan Assessment/Plan 1. 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 His TSH is also within normal range. S/P DDD [employer] PPM implant yesterday. Implant site no hematoma. CXR no PTX 2. Renal insufficiency . Resolved. Fu by Dr. Luna. 3. Diabetes. 4. Diarrhea. Further evaluation by GI. Subjective Subjective No further pauses post PPM implant yesterday Objective Last 24 Hour Vital Signs Date Time Temp Pulse Resp B/P (MAP) Pulse Ox O2 Delivery O2 Flow Rate FiO2 11/28/19 12:00 62 11/28/19 12:00 Room Air 11/28/19 12:00 96.4 64 21 136/75 (95) 98 11/28/19 08:34 76 11/28/19 08:00 Room Air 11/28/19 08:00 97.2 74 20 135/72 (93) 95 11/28/19 04:00 65 11/28/19 04:00 97.8 64 20 135/70 (91) 95 11/28/19 00:00 63 11/28/19 00:00 97.8 64 20 140/72 (94) 95 11/27/19 21:00 Room Air 11/27/19 20:00 77 11/27/19 20:00 97.7 72 20 127/73 (91) 95 11/27/19 16:00 60 11/27/19 16:00 97.3 70 20 124/70 (88) 95 Intake and Output 11/27/19 11/28/19 19:00 07:00 Intake Total 750 ml 355 ml Output Total 450 ml Balance 300 ml 355 ml Intake Oral 450 ml 300 ml IV Total 300 ml 55 ml Output Urine Total 400 ml Estimated Blood Loss 50 ml # Voids 2 1 Microbiology Date/Time Source Procedure Growth Status 11/27/19 08:55 Nasopharynx SARS-CoV-2 RdRp Gene Assay - Final Complete Objective HEAD AND NECK: No JVD. LUNGS: Clear. CARDIOVASCULAR: Regular S1 and S2 with no gallop. ABDOMEN: Soft. EXTREMITIES: No pitting edema. Buddy Condon MD Nov 28, 2019 14:15
--- NOTE | 2019-11-28 15:50 | General Progress Note ---
Assessment/Plan Problem List: (1) Hyperkalemia ICD Codes: E87.5 - Hyperkalemia SNOMED: 72386428, 686249153 (2) Dizziness ICD Codes: R42 - Dizziness and giddiness SNOMED: 948885042, 762614824 (3) Diabetes mellitus ICD Codes: E11.9 - Type 2 diabetes mellitus without complications SNOMED: 70227434 (4) Renal insufficiency ICD Codes: N28.9 - Disorder of kidney and ureter, unspecified SNOMED: 937839268, 629599519 Status: progressing Assessment/Plan: symptomatic bradycardia w pause s/p pacemaker lyte abnormality dizziness improved afebrile Subjective ROS Limited/Unobtainable: Yes Allergies: Coded Allergies: No Known Allergies (Unverified , 11/23/19) Objective Last 24 Hour Vital Signs Date Time Temp Pulse Resp B/P (MAP) Pulse Ox O2 Delivery O2 Flow Rate FiO2 11/28/19 12:00 62 11/28/19 12:00 Room Air 11/28/19 12:00 96.4 64 21 136/75 (95) 98 11/28/19 08:34 76 11/28/19 08:00 Room Air 11/28/19 08:00 97.2 74 20 135/72 (93) 95 11/28/19 04:00 65 11/28/19 04:00 97.8 64 20 135/70 (91) 95 11/28/19 00:00 63 11/28/19 00:00 97.8 64 20 140/72 (94) 95 11/27/19 21:00 Room Air 11/27/19 20:00 77 11/27/19 20:00 97.7 72 20 127/73 (91) 95 11/27/19 16:00 60 11/27/19 16:00 97.3 70 20 124/70 (88) 95 Intake and Output 11/27/19 11/28/19 19:00 07:00 Intake Total 750 ml 355 ml Output Total 450 ml Balance 300 ml 355 ml Intake Oral 450 ml 300 ml IV Total 300 ml 55 ml Output Urine Total 400 ml Estimated Blood Loss 50 ml # Voids 2 1 Height (Feet): 5 Height (Inches): 9.00 Weight (Pounds): 197 Morena Esquivel MD Nov 28, 2019 15:50
[2019-11-28 16:00] VITALS: BP 136/75
--- NOTE | 2019-11-28 17:21 | 48 Hour Post Anesthesia Eval ---
Post Anesthesia Evaluation Procedure: Permanent pacemaker placement Date of Evaluation: Nov 28, 2019 Time of Evaluation: 17:20 Blood Pressure Systolic: 136 0: 75 Pulse Rate: 50 Respiratory Rate: 14 O2 Sat by Pulse Oximetry: 98 Airway: patent Nausea: No Vomiting: No Hydration Status: adequate Cardiopulmonary Status: stable Mental Status/LOC: patient returned to baseline Follow-up Care/Observations: na Post-Anesthesia Complications: none Follow-up care needed: N/A Loida Bradley CRNA Nov 28, 2019 17:21
[2019-11-28 20:00] VITALS: BP 153/71
[2019-11-28] MEDS: Miralax 17gm pkt ORAL SCH (20:29)
[2019-11-28] MEDS: Tylenol #3 tab (300mg/30mg) ORAL PRN (20:32)
[2019-11-28] MEDS ORDERED: Levemir Flexpen SUBQ SCH (21:00)
[2019-11-29] VITALS: BP 140/60
[2019-11-29] MEDS: Tylenol #3 tab (300mg/30mg) ORAL PRN (01:56)
[2019-11-29 04:00] VITALS: BP 142/76
[2019-11-29 05:56] LABS: EOSINOPHILS % (AUTO) 4.9 % (0.0-3.0); HEMATOCRIT 44.8 % (42.0-52.0); HEMOGLOBIN 14.1 G/DL (14.2-18.0); LYMPHOCYTES % (AUTO) 30.6 % (20.0-45.0); MEAN CORPUSCULAR VOLUME 95 FL (80-99); MONOCYTES % (AUTO) 8.9 % (1.0-10.0); NEUTROPHILS % (AUTO) 54.6 % (45.0-75.0); PLATELET COUNT 179 K/UL (150-450); RED CELL DISTRIBUTION WIDTH 13.3 % (11.6-14.8); WHITE BLOOD COUNT 6.7 K/UL (4.8-10.8)
[2019-11-29 06:29] LABS: ALANINE AMINOTRANSFERASE 53 U/L (12-78); ALBUMIN 3.4 G/DL (3.4-5.0); ALBUMIN/GLOBULIN RATIO 0.9 (1.0-2.7); ALKALINE PHOSPHATASE 70 U/L (46-116); ANION GAP 7 mmol/L (5-15); ASPARTATE AMINO TRANSFERASE 25 U/L (15-37); BILIRUBIN,TOTAL 0.5 MG/DL (0.2-1.0); BLOOD UREA NITROGEN 15 mg/dL (7-18); CALCIUM 8.3 MG/DL (8.5-10.1); CARBON DIOXIDE 32 MMOL/L (21-32); CHLORIDE 102 MMOL/L (98-107); CREATININE 0.8 MG/DL (0.55-1.30); PHOSPHORUS 3.4 MG/DL (2.5-4.9); POTASSIUM 4.1 MMOL/L (3.5-5.1); SODIUM 141 MMOL/L (136-145)
[2019-11-29] MEDS: ceFAZolin sod 1 GM in D5W 55 ML IVP SCH ×3 (06:33→21:22)
[2019-11-29] MEDS: Nateglinide 60mg tab ORAL SCH ×2 (06:33→11:31)
[2019-11-29] MEDS: NovoLOG Insulin Flexpen SUBQ SCH ×4 (06:37→20:47)
[2019-11-29 08:00] VITALS: BP 148/70
[2019-11-29] MEDS: Docusate 100mg cap ORAL SCH ×2 (08:25→17:23)
--- NOTE | 2019-11-29 09:32 | General Progress Note ---
Assessment/Plan Problem List: (1) Hyperkalemia ICD Codes: E87.5 - Hyperkalemia SNOMED: 86800948, 283545677 (2) Dizziness ICD Codes: R42 - Dizziness and giddiness SNOMED: 799293988, 473420332 (3) Diabetes mellitus ICD Codes: E11.9 - Type 2 diabetes mellitus without complications SNOMED: 35938247 (4) Renal insufficiency ICD Codes: N28.9 - Disorder of kidney and ureter, unspecified SNOMED: 169852328, 203679422 Status: progressing Assessment/Plan: symptomatic bradycardia w pause s/p pacemaker dc planning needs HH dm sugars improved Subjective ROS Limited/Unobtainable: Yes Allergies: Coded Allergies: No Known Allergies (Unverified , 11/23/19) Objective Last 24 Hour Vital Signs Date Time Temp Pulse Resp B/P (MAP) Pulse Ox O2 Delivery O2 Flow Rate FiO2 11/29/19 08:00 70 11/29/19 08:00 97.2 72 21 148/70 (96) 98 11/29/19 04:00 Room Air 11/29/19 04:00 97.2 60 20 142/76 (98) 98 11/29/19 03:48 60 11/29/19 02:30 98.1 11/29/19 00:00 63 11/29/19 00:00 Room Air 11/29/19 00:00 98.1 65 20 140/60 (86) 98 11/28/19 20:00 62 11/28/19 20:00 98.1 65 20 153/71 (98) 96 11/28/19 20:00 Room Air 11/28/19 17:21 50 14 98 11/28/19 16:38 71 11/28/19 16:00 98.1 67 21 136/75 (95) 98 11/28/19 16:00 Room Air 11/28/19 12:00 62 11/28/19 12:00 Room Air 11/28/19 12:00 96.4 64 21 136/75 (95) 98 Intake and Output 11/28/19 11/29/19 19:00 07:00 Intake Total 1320 ml 510 ml Output Total 351 ml 1 ml Balance 969 ml 509 ml Intake Oral 1320 ml 400 ml IV Total 110 ml Output Urine Total 350 ml Stool Total 1 ml 1 ml # Voids 5 2 # Bowel Movements 1 3 Laboratory Tests 11/29/19 04:29: White Blood Count 6.7, Red Blood Count 4.70, Hemoglobin 14.1L, Hematocrit 44.8, Mean Corpuscular Volume 95, Mean Corpuscular Hemoglobin 29.9, Mean Corpuscular Hemoglobin Concent 31.4L, Red Cell Distribution Width 13.3, Platelet Count 179, Mean Platelet Volume 8.7, Neutrophils (%) (Auto) 54.6, Lymphocytes (%) (Auto) 30.6, Monocytes (%) (Auto) 8.9, Eosinophils (%) (Auto) 4.9H, Basophils (%) (Auto ) 1.0, Sodium Level 141, Potassium Level 4.1, Chloride Level 102, Carbon Dioxide Level 32, Anion Gap 7, Blood Urea Nitrogen 15, Creatinine 0.8, Estimat Glomerular Filtration Rate > 60, Glucose Level 211H, Calcium Level 8.3L, Phosphorus Level 3.4, Magnesium Level 1.8, Total Bilirubin 0.5, Aspartate Amino Transf (AST/SGOT) 25, Alanine Aminotransferase (ALT/SGPT) 53, Alkaline Phosphatase 70, Total Protein 7.0, Albumin 3.4, Globulin 3.6, Albumin/Globulin Ratio 0.9L Height (Feet): 5 Height (Inches): 9.00 Weight (Pounds): 197 Morena Esquivel MD Nov 29, 2019 09:32
--- NOTE | 2019-11-29 11:40 | Nephrology Progress Note ---
Assessment/Plan Problem List: (1) Renal insufficiency (2) Diabetes mellitus (3) Hyperkalemia (4) Dizziness (5) Diarrhea Assessment Elevated potassium of 6 and creatinine of 1.4 now corrected Diabetes mellitus Dizziness upon admission Diarrhea Plan November 28:Remains stable from renal standpoint of view. Patient had a pacemaker on November 26. Reason for pacemaker was complete heart block. No can panel done today. Stable from renal standpoint of view. Previously: Patient in [facility], has periodic complete heart block, at times with 6-second pause , due for pacemaker placement. Discussed with Status quo. Continue per consultants. Check orthostatics Urine for analysis Monitor renal parameters and electrolytes Per orders Subjective ROS Limited/Unobtainable: No Objective Objective Last 24 Hour Vital Signs Date Time Temp Pulse Resp B/P (MAP) Pulse Ox O2 Delivery O2 Flow Rate FiO2 11/29/19 08:00 70 11/29/19 08:00 97.2 72 21 148/70 (96) 98 11/29/19 08:00 Room Air 11/29/19 04:00 Room Air 11/29/19 04:00 97.2 60 20 142/76 (98) 98 11/29/19 03:48 60 11/29/19 02:30 98.1 11/29/19 00:00 63 11/29/19 00:00 Room Air 11/29/19 00:00 98.1 65 20 140/60 (86) 98 11/28/19 20:00 62 11/28/19 20:00 98.1 65 20 153/71 (98) 96 11/28/19 20:00 Room Air 11/28/19 17:21 50 14 98 11/28/19 16:38 71 11/28/19 16:00 98.1 67 21 136/75 (95) 98 11/28/19 16:00 Room Air 11/28/19 12:00 62 11/28/19 12:00 Room Air 11/28/19 12:00 96.4 64 21 136/75 (95) 98 Intake and Output 11/28/19 11/29/19 19:00 07:00 Intake Total 1320 ml 510 ml Output Total 351 ml 1 ml Balance 969 ml 509 ml Intake Oral 1320 ml 400 ml IV Total 110 ml Output Urine Total 350 ml Stool Total 1 ml 1 ml # Voids 5 2 # Bowel Movements 1 3 Current Medications Medications (Trade) Dose Ordered Sig/Zain Route PRN Reason Start Time Stop Time Status Last Admin Dose Admin Acetaminophen (Tylenol) 650 mg Q6H PRN ORAL Temp >100.5 11/27/19 11:45 12/27/19 11:44 Acetaminophen/ Codeine Phosphate (Tylenol #3) 1 tab Q4H PRN ORAL Moderate Pain (Pain Scale 4-6) 11/27/19 11:45 12/04/19 11:44 11/29/19 01:56 Cefazolin Sodium 1 gm/Dextrose 55 ml @ 110 mls/hr Q8HR IVP 11/27/19 22:00 12/04/19 21:59 11/29/19 06:33 Dextrose (Dextrose 50%) 25 ml Q30M PRN IV Hypoglycemia 11/26/19 21:00 02/22/20 01:29 Dextrose (Dextrose 50%) 50 ml Q30M PRN IV Hypoglycemia 11/26/19 21:00 02/22/20 01:29 Docusate Sodium (Colace) 100 mg TWICE A DAY ORAL 11/27/19 09:00 12/25/19 17:59 11/29/19 08:25 Insulin Aspart (NovoLOG) BEFORE MEALS AND HS SUBQ 11/26/19 21:00 02/22/20 06:29 11/29/19 11:32 Insulin Detemir (Levemir) 10 units QHS SUBQ 11/28/19 21:00 02/22/20 08:59 11/28/19 20:36 Morphine Sulfate (Morphine Sulfate) 2 mg Q1H PRN IVP Severe Pain (Pain Scale 7-10) 11/27/19 11:45 12/04/19 11:44 11/28/19 09:01 Nateglinide (Starlix) 60 mg TIAC ORAL 11/28/19 11:30 12/28/19 11:29 11/29/19 11:31 Ondansetron HCl (Zofran) 4 mg Q6H PRN IVP Nausea & Vomiting 11/27/19 11:45 12/27/19 11:44 Pantoprazole (Protonix) 40 mg EVERY 12 HOURS ORAL 11/26/19 21:00 12/24/19 20:59 11/29/19 08:25 Polyethylene Glycol (Miralax) 17 gm BEDTIME ORAL 11/26/19 21:00 12/25/19 20:59 11/28/19 20:29 Laboratory Tests 11/29/19 04:29: White Blood Count 6.7, Red Blood Count 4.70, Hemoglobin 14.1L, Hematocrit 44.8, Mean Corpuscular Volume 95, Mean Corpuscular Hemoglobin 29.9, Mean Corpuscular Hemoglobin Concent 31.4L, Red Cell Distribution Width 13.3, Platelet Count 179, Mean Platelet Volume 8.7, Neutrophils (%) (Auto) 54.6, Lymphocytes (%) (Auto) 30.6, Monocytes (%) (Auto) 8.9, Eosinophils (%) (Auto) 4.9H, Basophils (%) (Auto ) 1.0, Sodium Level 141, Potassium Level 4.1, Chloride Level 102, Carbon Dioxide Level 32, Anion Gap 7, Blood Urea Nitrogen 15, Creatinine 0.8, Estimat Glomerular Filtration Rate > 60, Glucose Level 211H, Calcium Level 8.3L, Phosphorus Level 3.4, Magnesium Level 1.8, Total Bilirubin 0.5, Aspartate Amino Transf (AST/SGOT) 25, Alanine Aminotransferase (ALT/SGPT) 53, Alkaline Phosphatase 70, Total Protein 7.0, Albumin 3.4, Globulin 3.6, Albumin/Globulin Ratio 0.9L Height (Feet): 5 Height (Inches): 9.00 Weight (Pounds): 197 General Appearance: no apparent distress Cardiovascular: normal rate Abdomen: soft Objective No change Titi Luna MD Nov 29, 2019 11:40
[2019-11-29 12:00] VITALS: BP 133/76
--- NOTE | 2019-11-29 13:06 | General Progress Note ---
Assessment/Plan Problem List: (1) Renal insufficiency ICD Codes: N28.9 - Disorder of kidney and ureter, unspecified SNOMED: 103085677, 191116608 (2) Diarrhea ICD Codes: R19.7 - Diarrhea, unspecified SNOMED: 23771888, 997580054 Qualifiers: Qualified Codes: R19.7 - Diarrhea, unspecified (3) Diabetes mellitus ICD Codes: E11.9 - Type 2 diabetes mellitus without complications SNOMED: 89753912 (4) Dizziness ICD Codes: R42 - Dizziness and giddiness SNOMED: 189703428, 326006574 (5) Hyperkalemia ICD Codes: E87.5 - Hyperkalemia SNOMED: 52635046, 033866810 Assessment/Plan: increase Levemir to 12 units qhs increase Starlix to 120 mg ac tid add Januvia 100 mg daily continue Novolog sliding scale ac / hs hypoglycemia protocol in order Subjective ROS Limited/Unobtainable: Yes Allergies: Coded Allergies: No Known Allergies (Unverified , 11/23/19) Subjective events noted glucose values are elevated Item Value Date Time Bedside Blood Glucose 233 mg/dl H 11/29/19 1132 Bedside Blood Glucose 193 mg/dl H 11/29/19 0653 Bedside Blood Glucose 336 mg/dl H 11/28/19 2100 Bedside Blood Glucose 147 mg/dl H 11/28/19 1630 Bedside Blood Glucose 212 mg/dl H 11/28/19 1153 Objective Last 24 Hour Vital Signs Date Time Temp Pulse Resp B/P (MAP) Pulse Ox O2 Delivery O2 Flow Rate FiO2 11/29/19 08:00 70 11/29/19 08:00 97.2 72 21 148/70 (96) 98 11/29/19 08:00 Room Air 11/29/19 04:00 Room Air 11/29/19 04:00 97.2 60 20 142/76 (98) 98 11/29/19 03:48 60 11/29/19 02:30 98.1 11/29/19 00:00 63 11/29/19 00:00 Room Air 11/29/19 00:00 98.1 65 20 140/60 (86) 98 11/28/19 20:00 62 11/28/19 20:00 98.1 65 20 153/71 (98) 96 11/28/19 20:00 Room Air 11/28/19 17:21 50 14 98 11/28/19 16:38 71 11/28/19 16:00 98.1 67 21 136/75 (95) 98 11/28/19 16:00 Room Air Intake and Output 11/28/19 11/29/19 18:59 06:59 Intake Total 1320 ml 455 ml Output Total 351 ml 1 ml Balance 969 ml 454 ml Intake Oral 1320 ml 400 ml IV Total 55 ml Output Urine Total 350 ml Stool Total 1 ml 1 ml # Voids 5 2 # Bowel Movements 1 3 Laboratory Tests 11/29/19 04:29: White Blood Count 6.7, Red Blood Count 4.70, Hemoglobin 14.1L, Hematocrit 44.8, Mean Corpuscular Volume 95, Mean Corpuscular Hemoglobin 29.9, Mean Corpuscular Hemoglobin Concent 31.4L, Red Cell Distribution Width 13.3, Platelet Count 179, Mean Platelet Volume 8.7, Neutrophils (%) (Auto) 54.6, Lymphocytes (%) (Auto) 30.6, Monocytes (%) (Auto) 8.9, Eosinophils (%) (Auto) 4.9H, Basophils (%) (Auto ) 1.0, Sodium Level 141, Potassium Level 4.1, Chloride Level 102, Carbon Dioxide Level 32, Anion Gap 7, Blood Urea Nitrogen 15, Creatinine 0.8, Estimat Glomerular Filtration Rate > 60, Glucose Level 211H, Calcium Level 8.3L, Phosphorus Level 3.4, Magnesium Level 1.8, Total Bilirubin 0.5, Aspartate Amino Transf (AST/SGOT) 25, Alanine Aminotransferase (ALT/SGPT) 53, Alkaline Phosphatase 70, Total Protein 7.0, Albumin 3.4, Globulin 3.6, Albumin/Globulin Ratio 0.9L General Appearance: no apparent distress Neck: normal alignment Cardiovascular: normal rate Respiratory/Chest: lungs clear Abdomen: normal bowel sounds Objective Current Medications Medications (Trade) Dose Ordered Sig/Zain Route PRN Reason Start Time Stop Time Status Last Admin Dose Admin Acetaminophen (Tylenol) 650 mg Q6H PRN ORAL Temp >100.5 11/27/19 11:45 12/27/19 11:44 Acetaminophen/ Codeine Phosphate (Tylenol #3) 1 tab Q4H PRN ORAL Moderate Pain (Pain Scale 4-6) 11/27/19 11:45 12/04/19 11:44 11/29/19 01:56 Cefazolin Sodium 1 gm/Dextrose 55 ml @ 110 mls/hr Q8HR IVP 11/27/19 22:00 12/04/19 21:59 11/29/19 06:33 Dextrose (Dextrose 50%) 25 ml Q30M PRN IV Hypoglycemia 11/26/19 21:00 02/22/20 01:29 Dextrose (Dextrose 50%) 50 ml Q30M PRN IV Hypoglycemia 11/26/19 21:00 02/22/20 01:29 Docusate Sodium (Colace) 100 mg TWICE A DAY ORAL 11/27/19 09:00 12/25/19 17:59 11/29/19 08:25 Insulin Aspart (NovoLOG) BEFORE MEALS AND HS SUBQ 11/26/19 21:00 02/22/20 06:29 11/29/19 11:32 Insulin Detemir (Levemir) 10 units QHS SUBQ 11/28/19 21:00 02/22/20 08:59 11/28/19 20:36 Morphine Sulfate (Morphine Sulfate) 2 mg Q1H PRN IVP Severe Pain (Pain Scale 7-10) 11/27/19 11:45 12/04/19 11:44 11/28/19 09:01 Nateglinide (Starlix) 60 mg TIAC ORAL 11/28/19 11:30 12/28/19 11:29 11/29/19 11:31 Ondansetron HCl (Zofran) 4 mg Q6H PRN IVP Nausea & Vomiting 11/27/19 11:45 12/27/19 11:44 Pantoprazole (Protonix) 40 mg EVERY 12 HOURS ORAL 11/26/19 21:00 12/24/19 20:59 11/29/19 08:25 Polyethylene Glycol (Miralax) 17 gm BEDTIME ORAL 11/26/19 21:00 12/25/19 20:59 11/28/19 20:29 Oskar Dominique MD Nov 29, 2019 13:06
[2019-11-29 16:00] VITALS: BP 128/75
[2019-11-29 20:00] VITALS: BP 150/77
[2019-11-29] MEDS: Miralax 17gm pkt ORAL SCH (20:43)
[2019-11-29] MEDS ORDERED: Levemir Flexpen SUBQ SCH (21:00)
[2019-11-30] VITALS: BP 140/75
[2019-11-30 04:00] VITALS: BP 154/89
[2019-11-30] MEDS: ceFAZolin sod 1 GM in D5W 55 ML IVP SCH (06:12)
[2019-11-30] MEDS: NovoLOG Insulin Flexpen SUBQ SCH ×2 (06:14→12:22)
--- NOTE | 2019-11-30 07:03 | General Progress Note ---
Assessment/Plan Problem List: (1) Renal insufficiency ICD Codes: N28.9 - Disorder of kidney and ureter, unspecified SNOMED: 776674207, 328578727 (2) Diarrhea ICD Codes: R19.7 - Diarrhea, unspecified SNOMED: 51374276, 898778835 Qualifiers: Qualified Codes: R19.7 - Diarrhea, unspecified (3) Diabetes mellitus ICD Codes: E11.9 - Type 2 diabetes mellitus without complications SNOMED: 52310518 (4) Dizziness ICD Codes: R42 - Dizziness and giddiness SNOMED: 448758178, 040534357 (5) Hyperkalemia ICD Codes: E87.5 - Hyperkalemia SNOMED: 15990028, 285566742 Status: progressing Assessment/Plan: increase Levemir to 18 units qhs continue Starlix to 120 mg ac tid add Januvia 100 mg daily add Metformin 500 mg tid continue Novolog sliding scale ac / hs hypoglycemia protocol in order Subjective ROS Limited/Unobtainable: Yes Allergies: Coded Allergies: No Known Allergies (Unverified , 11/23/19) Subjective events noted glucose values are elevated Item Value Date Time Bedside Blood Glucose 244 mg/dl H 11/30/19 0630 Bedside Blood Glucose 250 mg/dl H 11/29/19 2100 Bedside Blood Glucose 235 mg/dl H 11/29/19 1630 Bedside Blood Glucose 233 mg/dl H 11/29/19 1132 Bedside Blood Glucose 193 mg/dl H 11/29/19 0653 Objective Last 24 Hour Vital Signs Date Time Temp Pulse Resp B/P (MAP) Pulse Ox O2 Delivery O2 Flow Rate FiO2 11/30/19 04:00 Room Air 11/30/19 04:00 97.5 66 20 154/89 (110) 95 11/30/19 04:00 66 11/30/19 00:00 98.6 64 20 140/75 (96) 95 11/30/19 00:00 Room Air 11/29/19 20:00 63 11/29/19 20:00 Room Air 11/29/19 20:00 98.1 63 20 150/77 (101) 99 11/29/19 16:00 97.3 64 21 128/75 (92) 99 11/29/19 16:00 Room Air 11/29/19 15:59 64 11/29/19 12:00 70 6/21/20 12:00 Room Air 11/29/19 12:00 97.0 66 21 133/76 (95) 99 11/29/19 08:00 70 11/29/19 08:00 97.2 72 21 148/70 (96) 98 11/29/19 08:00 Room Air Intake and Output 11/29/19 11/30/19 19:00 07:00 Intake Total 1015 ml 535 ml Output Total 900 ml 401 ml Balance 115 ml 134 ml Intake Oral 960 ml 480 ml IV Total 55 ml 55 ml Output Urine Total 900 ml 400 ml Stool Total 1 ml # Voids 2 # Bowel Movements 1 Height (Feet): 5 Height (Inches): 9.00 Weight (Pounds): 197 General Appearance: no apparent distress Neck: normal alignment Cardiovascular: normal rate Respiratory/Chest: lungs clear Abdomen: normal bowel sounds Pelvis: normal external exam Objective Current Medications Medications (Trade) Dose Ordered Sig/Zain Route PRN Reason Start Time Stop Time Status Last Admin Dose Admin Acetaminophen (Tylenol) 650 mg Q6H PRN ORAL Temp >100.5 11/27/19 11:45 12/27/19 11:44 Acetaminophen/ Codeine Phosphate (Tylenol #3) 1 tab Q4H PRN ORAL Moderate Pain (Pain Scale 4-6) 11/27/19 11:45 12/04/19 11:44 11/29/19 01:56 Cefazolin Sodium 1 gm/Dextrose 55 ml @ 110 mls/hr Q8HR IVP 11/27/19 22:00 12/04/19 21:59 11/30/19 06:12 Dextrose (Dextrose 50%) 25 ml Q30M PRN IV Hypoglycemia 11/26/19 21:00 02/22/20 01:29 Dextrose (Dextrose 50%) 50 ml Q30M PRN IV Hypoglycemia 11/26/19 21:00 02/22/20 01:29 Docusate Sodium (Colace) 100 mg TWICE A DAY ORAL 11/27/19 09:00 12/25/19 17:59 11/29/19 17:23 Insulin Aspart (NovoLOG) BEFORE MEALS AND HS SUBQ 11/26/19 21:00 02/22/20 06:29 11/30/19 06:14 Insulin Detemir (Levemir) 12 units QHS SUBQ 11/29/19 21:00 02/22/20 08:59 11/29/19 20:45 Morphine Sulfate (Morphine Sulfate) 2 mg Q1H PRN IVP Severe Pain (Pain Scale 7-10) 11/27/19 11:45 12/04/19 11:44 11/28/19 09:01 Nateglinide (Starlix) 120 mg TIAC ORAL 11/29/19 16:30 12/28/19 11:29 11/30/19 06:13 Ondansetron HCl (Zofran) 4 mg Q6H PRN IVP Nausea & Vomiting 11/27/19 11:45 12/27/19 11:44 11/29/19 20:43 Pantoprazole (Protonix) 40 mg EVERY 12 HOURS ORAL 11/26/19 21:00 12/24/19 20:59 11/29/19 20:43 Polyethylene Glycol (Miralax) 17 gm BEDTIME ORAL 11/26/19 21:00 12/25/19 20:59 11/28/19 20:29 Sitagliptin Phosphate (Januvia) 100 mg ACBREAKFAST ORAL 11/30/19 06:30 12/30/19 06:29 11/30/19 06:13 Oskar Dominique MD Nov 30, 2019 07:03
[2019-11-30 08:00] VITALS: BP 119/57
[2019-11-30] MEDS: Docusate 100mg cap ORAL SCH (08:12)
[2019-11-30] MEDS: metFORMIN 500mg tab ORAL SCH ×2 (08:12→12:28)
--- NOTE | 2019-11-30 09:02 | Nephrology Progress Note ---
Assessment/Plan Problem List: (1) Renal insufficiency (2) Diabetes mellitus (3) Hyperkalemia (4) Dizziness (5) Diarrhea Assessment Elevated potassium of 6 and creatinine of 1.4 now corrected Diabetes mellitus Dizziness upon admission Diarrhea Plan November 29: No can panel today. Clinically stable , vital signs stable. Continue per cardiology advice November 28:Remains stable from renal standpoint of view. Patient had a pacemaker on November 26. Reason for pacemaker was complete heart block. No can panel done today. Stable from renal standpoint of view. Previously: Patient in [facility], has periodic complete heart block, at times with 6-second pause , due for pacemaker placement. Discussed with Status quo. Continue per consultants. Check orthostatics Urine for analysis Monitor renal parameters and electrolytes Per orders Subjective ROS Limited/Unobtainable: No Constitutional: Reports: malaise Objective Objective Last 24 Hour Vital Signs Date Time Temp Pulse Resp B/P (MAP) Pulse Ox O2 Delivery O2 Flow Rate FiO2 11/30/19 04:00 Room Air 11/30/19 04:00 97.5 66 20 154/89 (110) 95 11/30/19 04:00 66 11/30/19 00:00 98.6 64 20 140/75 (96) 95 11/30/19 00:00 Room Air 11/29/19 20:00 63 11/29/19 20:00 Room Air 11/29/19 20:00 98.1 63 20 150/77 (101) 99 11/29/19 16:00 97.3 64 21 128/75 (92) 99 11/29/19 16:00 Room Air 11/29/19 15:59 64 11/29/19 12:00 70 11/29/19 12:00 Room Air 11/29/19 12:00 97.0 66 21 133/76 (95) 99 Intake and Output 11/29/19 11/30/19 19:00 07:00 Intake Total 1015 ml 535 ml Output Total 900 ml 401 ml Balance 115 ml 134 ml Intake Oral 960 ml 480 ml IV Total 55 ml 55 ml Output Urine Total 900 ml 400 ml Stool Total 1 ml # Voids 2 # Bowel Movements 1 Height (Feet): 5 Height (Inches): 9.00 Weight (Pounds): 197 General Appearance: no apparent distress Cardiovascular: normal rate Respiratory/Chest: lungs clear Abdomen: soft Objective No change Titi Luna MD Nov 30, 2019 09:02
--- NOTE | 2019-11-30 10:25 | General Progress Note ---
Assessment/Plan Problem List: (1) Renal insufficiency ICD Codes: N28.9 - Disorder of kidney and ureter, unspecified SNOMED: 121842915, 661758540 (2) Diarrhea ICD Codes: R19.7 - Diarrhea, unspecified SNOMED: 01342442, 580327928 Qualifiers: Qualified Codes: R19.7 - Diarrhea, unspecified (3) Diabetes mellitus ICD Codes: E11.9 - Type 2 diabetes mellitus without complications SNOMED: 47919902 (4) Dizziness ICD Codes: R42 - Dizziness and giddiness SNOMED: 363363445, 229877717 (5) Hyperkalemia ICD Codes: E87.5 - Hyperkalemia SNOMED: 35886263, 509582730 Status: progressing Assessment/Plan: CT reviewed fatty liver diverticulosis colace and miralax fu labs will fu Subjective ROS Limited/Unobtainable: No Allergies: Coded Allergies: No Known Allergies (Unverified , 11/23/19) Objective Last 24 Hour Vital Signs Date Time Temp Pulse Resp B/P (MAP) Pulse Ox O2 Delivery O2 Flow Rate FiO2 11/30/19 08:00 68 11/30/19 08:00 98.0 70 18 119/57 (77) 98 11/30/19 04:00 Room Air 11/30/19 04:00 97.5 66 20 154/89 (110) 95 11/30/19 04:00 66 11/30/19 00:00 98.6 64 20 140/75 (96) 95 11/30/19 00:00 Room Air 11/29/19 20:00 63 11/29/19 20:00 Room Air 11/29/19 20:00 98.1 63 20 150/77 (101) 99 11/29/19 16:00 97.3 64 21 128/75 (92) 99 11/29/19 16:00 Room Air 11/29/19 15:59 64 11/29/19 12:00 70 11/29/19 12:00 Room Air 11/29/19 12:00 97.0 66 21 133/76 (95) 99 Intake and Output 11/29/19 11/30/19 19:00 07:00 Intake Total 1015 ml 535 ml Output Total 900 ml 401 ml Balance 115 ml 134 ml Intake Oral 960 ml 480 ml IV Total 55 ml 55 ml Output Urine Total 900 ml 400 ml Stool Total 1 ml # Voids 2 # Bowel Movements 1 Height (Feet): 5 Height (Inches): 9.00 Weight (Pounds): 197 General Appearance: no apparent distress EENT: normal ENT inspection Neck: supple Cardiovascular: normal rate Respiratory/Chest: decreased breath sounds Abdomen: normal bowel sounds, non tender, soft Extremities: non-tender Sabino Magdaleno MD Nov 30, 2019 10:25
[2019-11-30 12:00] VITALS: BP 126/63
--- NOTE | 2019-11-30 13:56 | Cardiac Electrophysiology PN ---
Assessment/Plan Assessment/Plan 1. 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 His TSH is also within normal range. S/P DDD [facility] PPM implant 11/28/19. Implant site no hematoma. CXR no PTX. Interrogation showed Nl FX 2. Renal insufficiency . Resolved. Fu by Dr. Luna. 3. Diabetes. 4. Diarrhea. Further evaluation by GI. OK to DC FU with me in 1-2 weeks Subjective Subjective No CP or SOB. Objective Last 24 Hour Vital Signs Date Time Temp Pulse Resp B/P (MAP) Pulse Ox O2 Delivery O2 Flow Rate FiO2 11/30/19 12:00 Room Air 11/30/19 12:00 98.4 73 18 126/63 (84) 97 11/30/19 08:00 68 11/30/19 08:00 98.0 70 18 119/57 (77) 98 11/30/19 08:00 Room Air 11/30/19 04:00 Room Air 11/30/19 04:00 97.5 66 20 154/89 (110) 95 11/30/19 04:00 66 11/30/19 00:00 98.6 64 20 140/75 (96) 95 11/30/19 00:00 Room Air 11/29/19 20:00 63 11/29/19 20:00 Room Air 11/29/19 20:00 98.1 63 20 150/77 (101) 99 11/29/19 16:00 97.3 64 21 128/75 (92) 99 11/29/19 16:00 Room Air 11/29/19 15:59 64 Intake and Output 11/29/19 11/30/19 19:00 07:00 Intake Total 1015 ml 535 ml Output Total 900 ml 401 ml Balance 115 ml 134 ml Intake Oral 960 ml 480 ml IV Total 55 ml 55 ml Output Urine Total 900 ml 400 ml Stool Total 1 ml # Voids 2 # Bowel Movements 1 Objective HEAD AND NECK: No JVD. LUNGS: Clear. CARDIOVASCULAR: Regular S1 and S2 with no gallop. ABDOMEN: Soft. EXTREMITIES: No pitting edema. Buddy Condon MD Nov 30, 2019 13:56
[2019-11-30] MEDS ORDERED: NS 275ml ONE (15:19)
[2019-11-30] MEDS ORDERED: Levemir Flexpen SUBQ SCH (21:00)
--- NOTE | 2019-12-01 13:02 | Discharge Summary ---
Discharge Summary Discharge Summary _ DATE OF ADMISSION: 11/23/2019 DATE OF DISCHARGE: 11/30/2019 DISCHARGED BY: Dr. Esquivel REASON FOR ADMISSION: 74 years old male with past medical history of diabetes mellitus, hypertension, presented by paramedics from home due to dizziness for 1 day. Patient also reported diarrhea and some abdominal pain. He denied abdominal pain upon presentation to ED. Per nursing , patient was all covered in stool. Patient denied fever and chills CT of the head revealed no acute intracranial pathology. EKG showed bifascicular block, no acute ischemic changes.. Troponin negative, pro BNP 53. Laboratory work-up revealed potassium 6.0. BUN 19, creatinine 1.4. Glucose 310. AST 68, ALT 117 No leukocytosis stable hemoglobin hematocrit. Urinalysis revealed no evidence of urinary tract infection. Chest x-ray revealed no acute cardiopulmonary pathology. No leukocytosis stable hemoglobin and hematocrit. In emergency room patient started on the IV fluids. Hyperkalemia was treated . Patient subsequently admitted to stepdown unit for further management. CONSULTANTS: sales administrator Dr. Deshpande fruit distributor Dr. Dominique GI specialist Dr. Magdaleno cereal supervisor Dr. Luna [facility]SE: Patient admitted to stepdown unit. Group Underwriter closely followed. Serial troponin were negative. EKG revealed trifascicular block with right bundle branch block, left anterior fascicular block; also noted underlying first-degree AV block. Echocardiogram demonstrated preserved ejection fraction of 60 to 65%. No evidence of left ventricular hypertrophy. No evidence of wall motion abnormality to the extent visualized. Right ventricular systolic pressure of 17. Patient was continued to be monitored on telemetry floor. Patient was off any sinus node, AV node, or AV be blocking agents. TSH within normal limits. Patient initially showed no evidence of complete heart block. However on 11/26 patient with a trifascicular block, with underlying dizziness and bradycardia, was having intermittent complete heart block with more than 5 seconds pauses. As mentioned above, patient was off any sinus node, AV node, or AV be blocking agents. That was a class I indication for permanent pacemaker implantation. Patient subsequently undergone dual-chamber permanent pacemaker implantation on 11/27. Chest x-ray post procedure showed no evidence of pneumothorax. Interrogation showed normal functioning. Renal parameters and electrolytes were closely monitored , electrolytes corrected as needed , and nephrotoxic's were avoided. Prior to discharge BUN from 19 down to 15 and creatinine from 1.4 down to 0.8. All electrolytes corrected. CT scan of the abdomen and pelvis demonstrated fatty liver. Splenic granulomas. Diverticulosis. Bilateral small fatty inguinal hernias. GI prophylaxis provided. Initially elevated LFT trended down to normal. Blood sugar was managed as per fruit distributor recommendation and titrated, based on blood sugar results. Blood sugar was managed with long-acting Levemir, Januvia, metformin and Starlix. Sliding scale of insulin was on board as needed. Hypoglycemia protocol was in order. Patient was counseled on diabetic diet and diabetic teaching provided. Hemoglobin A1c 8.5. Blood sugar improved Patient clinically stabilized and was ready for discharge home with home health services. FINAL DIAGNOSES: Symptomatic bradycardia Trifascicular block Intermittent complete heart block Status post dual-chamber permanent pacemaker implantation Diabetes mellitus Renal insufficiency Diarrhea Hyperkalemia Fatty liver Diverticulosis DISCHARGE MEDICATIONS: See Medication Reconciliation list. DISCHARGE INSTRUCTIONS: Patient was discharged home with home health services. Follow up with primary care provider in one week. I have been assigned to dictate discharge summary for this account. I was not involved in the patient's management. Adelaide Wyatt NP Dec 01, 2019 13:02
== END 2019-11-30 15:20 | disposition home health service (06) | DRG 243 ==
LOC: EDBD 21:54 → EMR 22:25 → 2E 23:32 → EDBEDREQ 23:49 → 2W 11-26 20:27
PROC: 0JH606Z Insertion of Pacemaker, Dual Chamber into Chest Subcutaneous Tissue and Fascia, Open Approach (ICD-10-PCS; principal; 2019-11-27 09:30)
PROC: 02H63JZ Insertion of Pacemaker Lead into Right Atrium, Percutaneous Approach (ICD-10-PCS; principal; 2019-11-27 09:30)
DX: I44.2 Atrioventricular block, complete (principal); N17.9 Acute kidney failure, unspecified; I45.3 Trifascicular block; E87.5 Hyperkalemia; R19.7 Diarrhea, unspecified; R00.1 Bradycardia, unspecified; E11.9 Type 2 diabetes mellitus without complications; K76.0 Fatty (change of) liver, not elsewhere classified; K57.90 Diverticulosis of intestine, part unspecified, without perforation or abscess without bleeding
CPT/HCPCS: 36415; 70450; 71045; 74177; 76000; 80053; 80061; 81001; 82607; 82746; 82962; 82977; 83036; 83690; 83735; 83880; 84100; 84443; 84484; 84550; 85025; 85610; 85730; 86140; 93005; 93306; 94003; 94150; 96361; 96374; 96375; 99291; J2405; J7030; S5561; U0002